=== PATIENT | female | born 1945 | race Caucasian/White ===

== ENCOUNTER → 2017-09-06 14:15 | Outpatient (CLI) | payer MEDICARE, OTHER, SELFPAY ==
[2017-09-06 14:59] LABS: Add Manual Diff / Slide Review NO; Basophils Percent Auto 0.8 % (0-2); Eosinophils Percent Auto 1.8 % (2-4); Hemoglobin 14.4 g/dL (12.0-16.0); Lymphocytes Percent Auto 33.8 % (25-40); Mean Corpuscular HGB Conc 34.4 % (30-36); Mean Corpuscular Hemoglobin 31.3 PG (26-34); Monocytes Percent Auto 13.2 % (3-14); Neutrophils Absolute Auto 3300 /uL (3000-5900); Neutrophils Percent Auto 50.4 % (50-75); Platelet Count 238 X10^3/uL (150-400); Red Blood Cell Count 4.62 X10^6/uL (4.0-5.2); Red Cell Distribution Width 12.8 % (11.6-14.8); White Blood Cell Count 6.6 X10^3/uL (4.5-11.0)
[2017-09-06 15:06] LABS: Alanine Aminotransferase 25 IU/L (9-52); Albumin 4.4 g/dL (3.5-5.0); Albumin Globulin Ratio 1.3 (1.0-2.8); Alkaline Phosphatase 89 U/L (38-126); Aspartate Aminotransferase 20 IU/L (14-36); BUN Creatinine Ratio 28.3 (6-22); Bilirubin Total 0.5 mg/dL (0.2-1.3); Calcium 9.8 mg/dL (8.4-10.2); Estimated Glomerular Filt Rate > 60.0 mL/min (>60); Globulin 3.4 g/dL (1.7-4.1); Glucose 93 mg/dL (80-110); HEMOLYSIS < 15 (0-50); Potassium 4.3 mmol/L (3.4-5.1); Sodium 139 mmol/L (137-145); Total Protein 7.8 g/dL (6.3-8.2)
[2017-09-06 16:18] LABS: Vitamin D 25 Hydroxy (D3) 25.8 ng/mL (30.0-100.0)
[2017-09-06 16:34] LABS: Thyroid Stimulating Hormone 0.31 uIU/mL (0.47-4.68)
[2017-09-10 14:25] LABS: Parathyroid Hormone Int 69 pg/mL (14-64)
== END ==
PROVIDERS: Family Provider Physician Assistant; PCP Physician Assistant; Visit Provider Physician Assistant
DX: I10 Essential (primary) hypertension (principal); E21.3 Hyperparathyroidism, unspecified; E03.9 Hypothyroidism, unspecified; E55.9 Vitamin D deficiency, unspecified
CPT/HCPCS: 36415; 80053; 82306; 83970; 84443; 85025

== ENCOUNTER → 2017-11-14 16:16 | Outpatient (CLI) | payer MEDICARE, OTHER, SELFPAY ==
[2017-11-14 17:20] LABS: Alanine Aminotransferase 36 IU/L (9-52); Albumin 4.6 g/dL (3.5-5.0); Albumin Globulin Ratio 1.5 (1.0-2.8); Alkaline Phosphatase 94 U/L (38-126); Aspartate Aminotransferase 25 IU/L (14-36); Bilirubin Total 0.3 mg/dL (0.2-1.3); Blood Urea Nitrogen 14 mg/dL (7-17); Calcium 10.4 mg/dL (8.4-10.2); Carbon Dioxide 24 mmol/L (22-32); Chloride 104 mmol/L (98-107); Estimated Glomerular Filt Rate > 60.0 mL/min (>60); Glucose 99 mg/dL (80-110); HEMOLYSIS < 15 (0-50); Potassium 4.9 mmol/L (3.4-5.1); Sodium 141 mmol/L (137-145); Total Protein 7.6 g/dL (6.3-8.2)
[2017-11-14 17:49] LABS: Thyroid Stimulating Hormone 0.93 uIU/mL (0.47-4.68)
== END ==
PROVIDERS: Family Provider Physician Assistant; PCP Physician Assistant; Visit Provider Physician Assistant
DX: E03.9 Hypothyroidism, unspecified (principal); I10 Essential (primary) hypertension
CPT/HCPCS: 36415; 80053; 84443

== ENCOUNTER → 2018-02-25 14:07 | Outpatient (CLI) | payer MEDICARE, OTHER, SELFPAY ==
--- NOTE | 2018-02-25 | DI.CT.S_ITS ---
PROCEDURE: CT HEAD/BRAIN WO CON INDICATIONS: HEADACHES TECHNIQUE: Noncontrast 4.5 mm thick angled axial sections acquired from the foramen magnum to the vertex, with coronal and sagittal reformats. For radiation dose reduction, the following was used: automated exposure control, adjustment of mA and/or kV according to patient size. COMPARISON: [facility], CT, HEAD WITHOUT CONTRAST, 04/13/2013, 12:18. FINDINGS: Image quality: Excellent. CSF spaces: Basal cisterns are patent. No extra-axial fluid collections. The ventricles are symmetric in size and shape. Brain: No intracranial bleeds or masses. There is cerebral volume loss for age, with resultant ventricular and sulcal prominence. There are periventricular and deep white matter chronic small vessel ischemic changes. There is intracranial internal carotid artery atherosclerosis. Skull and face: Calvarium and visualized facial bones appear intact, without suspicious lesions. Sinuses: Visualized sinuses and mastoids are clear. IMPRESSION: 1. No acute intracranial process. 2. Moderate atrophy and chronic microvascular ischemic changes. Dictated by: Idalia Reynolds M.D. on 02/25/2018 at 14:41 Approved by: Idalia Reynolds M.D. on 02/25/2018 at 14:44
== END ==
PROVIDERS: Family Provider Physician Assistant; PCP Physician Assistant; Visit Provider Physician Assistant
DX: R51 Headache (principal); G31.9 Degenerative disease of nervous system, unspecified; I65.29 Occlusion and stenosis of unspecified carotid artery
CPT/HCPCS: 70450

== ENCOUNTER → 2018-04-04 14:49 | Outpatient (CLI) | payer MEDICARE, OTHER, SELFPAY ==
--- NOTE | 2018-04-04 | DI.MG.S_ITS ---
BILATERAL DIGITAL SCREENING MAMMOGRAM 3D/2D WITH CAD POST LUMPECTOMY: 04/04/2018 CLINICAL: Routine screening. Personal history of left breast cancer. Comparison is made to exams dated: 12/10/2016 mammogram, 05/23/2015 mammogram, and 12/29/2013 mammogram - [facility]. There are scattered fibroglandular elements in both breasts. Current study was also evaluated with a Computer Aided Detection (CAD) system. There are benign post operative findings in the left breast. No significant masses, calcifications, or other findings are seen in either breast. There has been no significant interval change. IMPRESSION: There is no mammographic evidence of malignancy. A 1 year screening mammogram is recommended. This exam was interpreted at Station ID: [id number]. NOTE: For mammograms, a report in lay terms will be sent to the patient. Approximately 15% of breast malignancies will not be visualized mammographically. In the management of a palpable breast mass, a negative mammogram must not discourage biopsy of a clinically suspicious lesion. Electronically Signed By: Thelma weeks/iain:04/04/2018 16:23:20 letter sent: Normal Exam ACR BI-RADS Category 2: Benign Finding(s) 3342F
== END ==
PROVIDERS: PCP Physician Assistant; Visit Provider Physician Assistant
DX: Z12.31 Encounter for screening mammogram for malignant neoplasm of breast (principal); Z85.3 Personal history of malignant neoplasm of breast
CPT/HCPCS: 77063; 77067

== ENCOUNTER → 2019-03-11 15:07 | Outpatient (CLI) | payer MEDICARE, OTHER, SELFPAY ==
[2019-03-11 16:31] LABS: Add Manual Diff / Slide Review NO; Basophils Absolute Auto 100 /uL (0-100); Basophils Percent Auto 0.9 % (0-2); Eosinophils Absolute Auto 100 /uL (0-450); Eosinophils Percent Auto 1.9 % (2-4); Hematocrit 42.2 % (36-46); Hemoglobin 14.7 g/dL (12.0-16.0); Lymphocytes Absolute Auto 2300 /uL (1100-4500); Lymphocytes Percent Auto 35.4 % (25-40); Mean Corpuscular HGB Conc 34.7 % (30-36); Mean Corpuscular Hemoglobin 31.9 PG (26-34); Mean Corpuscular Volume 91.7 fL (80-100); Monocytes Absolute Auto 600 /uL (0-900); Monocytes Percent Auto 9.8 % (3-14); Neutrophils Absolute Auto 3400 /uL (1500-7000); Platelet Count 266 X10^3/uL (150-400); Red Cell Distribution Width 12.6 % (11.6-14.8); White Blood Cell Count 6.5 X10^3/uL (4.5-11.0)
[2019-03-11 16:39] LABS: Hemoglobin A1C% w Est Avg Glu 5.3 % (4.0-6.0)
[2019-03-11 16:40] LABS: Alanine Aminotransferase 23 IU/L (<35); Albumin 4.5 g/dL (3.5-5.0); Albumin Globulin Ratio 1.6 (1.0-2.8); Alkaline Phosphatase 85 U/L (38-126); Aspartate Aminotransferase 25 IU/L (14-36); BUN Creatinine Ratio 21.7 (6-22); Bilirubin Total 0.5 mg/dL (0.2-1.3); Blood Urea Nitrogen 13 mg/dL (7-17); Calcium 10.3 mg/dL (8.4-10.2); Carbon Dioxide 24 mmol/L (22-32); Chloride 103 mmol/L (98-107); Cholesterol 283 mg/dL (140-199); Estimated Glomerular Filt Rate > 60.0 mL/min (>60); Globulin 2.9 g/dL (1.7-4.1); Glucose 108 mg/dL (80-110); HDL Cholesterol 71 mg/dL (40-60); HEMOLYSIS < 15 (0-50); LDL Cholesterol Calculated 174 mg/dL (<100); Potassium 4.3 mmol/L (3.4-5.1); Sodium 137 mmol/L (137-145); Total Protein 7.4 g/dL (6.3-8.2); Triglycerides 189 mg/dL (35-150)
[2019-03-11 16:55] LABS: Vitamin D 25 Hydroxy (D3) 30.4 ng/mL (30.0-100.0)
[2019-03-11 17:01] LABS: Erythrocyte Sedimentation Rate 17 MM/HR (0-20)
[2019-03-11 17:10] LABS: Cancer Antigen 125 13 U/mL (0-35)
[2019-03-11 17:29] LABS: Vitamin B12 629 pg/mL (239-931)
[2019-03-14 14:11] LABS: Parathyroid Hormone Int 49 pg/mL (14-64)
[2019-03-15 14:32] LABS: ANA Screen, IFA POSITIVE (NEGATIVE)
== END ==
PROVIDERS: PCP Physician Assistant; Visit Provider Physician Assistant
DX: I10 Essential (primary) hypertension (principal); R73.09 Other abnormal glucose; Z85.3 Personal history of malignant neoplasm of breast; E55.9 Vitamin D deficiency, unspecified
CPT/HCPCS: 36415; 80053; 80061; 82306; 82607; 83036; 83970; 84443; 85025; 85651; 86038; 86140; 86304

== ENCOUNTER → 2019-03-19 15:45 | Outpatient (CLI) | payer MEDICARE, OTHER, SELFPAY ==
[2019-03-24 16:40] LABS: Total Volume 2450 mL; Urine, Metanephrine 88 mcg/24 h (90-315); Urine, Normetanephrine 404 mcg/24 h (122-676)
[2019-03-29 18:24] LABS: Creatinine, 24 Urine 1.12 g/24 h (0.50-2.15); Total Catecholamines 60 mcg/24 h (26-121); Total Volume: 2450 mL
== END ==
PROVIDERS: PCP Physician Assistant; Visit Provider Physician Assistant
DX: I10 Essential (primary) hypertension (principal); E21.3 Hyperparathyroidism, unspecified; E03.9 Hypothyroidism, unspecified; E55.9 Vitamin D deficiency, unspecified
CPT/HCPCS: 82384; 83835

== ENCOUNTER 2019-04-15 23:42 | Emergency (ER) | payer MEDICARE, OTHER, SELFPAY ==
--- NOTE | 2019-04-15 23:50 | DI.RAD.S_ITS ---
PROCEDURE: XR FINGER LT MIN 2V INDICATIONS: laceration TECHNIQUE: AP hand, 2 views of the fourth finger(s) acquired. COMPARISON: None. FINDINGS: Bones: Displaced fracture of the tuft of the fourth distal phalange. Soft tissues: No suspicious soft tissue calcifications. No radiodense foreign bodies. IMPRESSION: Fourth distal phalange fracture. Dictated by: Marilia De León MD, PhD on 04/16/2019 at 9:00 Approved by: Marilia De León MD, PhD on 04/16/2019 at 9:01
[2019-04-15 23:52] VITALS: BP 142/60; PULSE 68; RESP 15; TEMP 36.7; O2SAT 95; BMI 43.9
--- NOTE | 2019-04-15 23:55 | PC.NURSE ---
pt has partial amputation of tip of left ring finger, bleeding controlled at this time
[2019-04-16] MEDS: TET,DIPH,PERTUSS(ACELL),VAC/PF 0.5 ML SYRINGE IM
[2019-04-16] MEDS: LIDOCAINE 1% (PF) 4 ML INJ
--- NOTE | 2019-04-16 00:01 | PC.NURSE ---
lidocaine scanned against patient wristband and given to dr ashraf for administration
--- NOTE | 2019-04-16 00:03 | ED.WOUNDLAC ---
HPI - Wound/Laceration General Chief Complaint: Wound/Laceration Stated Complaint: left ring finger laceration Time Seen by Provider: 04/15/19 23:50 Source: patient Mode of arrival: Ambulatory Limitations: no limitations History of Present Illness HPI narrative: Patient is a 73-year-old female here for evaluation of left ring finger injury. Patient isn't exactly sure how the injury happened. She was at home. She did have some alcoholic beverages this evening. She states that she went to pull in her chair when she is unsure if she crushed her finger caught on something. She does not know when her last tetanus shot was. Covered with a bandage came into the emergency department for evaluation. Related Data Home Medications Medication Instructions Recorded Confirmed ranitidine HCl [Zantac] 150 mg PO BID #0 06/19/16 11/14/17 aspirin 81 mg PO QDAY #0 12/13/16 11/14/17 cholecalciferol (vitamin D3) 1 tab PO QDAY #0 12/13/16 11/14/17 [Vitamin D3] amitriptyline 25 mg tablet 25 mg PO BEDTIME 11/14/17 11/14/17 diltiazem HCl 180 mg 360 mg PO DAILY cap 11/14/17 11/14/17 capsule,extended release 24 hr escitalopram oxalate 10 mg tablet 10 mg PO DAILY 11/14/17 11/14/17 fluticasone furoate 27.5 2 spray NASAL DAILY PRN 11/14/17 11/14/17 mcg/actuation nasal spray,suspension levothyroxine 75 mcg capsule 75 mcg PO DAILY 11/14/17 11/14/17 metoprolol succinate 50 mg 50 mg PO DAILY 11/14/17 11/14/17 tablet,extended release 24 hr Respironics Dreamstation CPAP #1 ea 08/28/18 08/28/18 Previous Rx's Medication Instructions Recorded oxycodone-acetaminophen [Percocet] 1 - 2 tab PO Q4HP PRN #90 tab 01/04/17 cephalexin [Keflex] 500 mg PO QID 7 Days #28 cap 04/16/19 Allergies Allergy/AdvReac Type Severity Reaction Status Date / Time adhesive tape [ADHESIVE TAPE] Allergy Severe FLARE OF Unverified 11/14/17 14:25 ECZEMA nickel [NICKEL] Allergy Severe FLARE OF Unverified 11/14/17 14:25 ECZEMA iodine [IODINE] Allergy Mild SKIN RASH Unverified 11/14/17 14:25 moxifloxacin [MOXIFLOXACIN] Allergy Mild ITCHING Unverified 11/14/17 14:25 amoxicillin [From AUGMENTIN] AdvReac Severe VOMITING Unverified 11/14/17 14:25 clavulanic acid AdvReac Severe VIOLENTLY Unverified 11/14/17 14:25 [CLAVULANIC ACID] ILL oxycodone [OXYCODONE] AdvReac Severe DELAYED Unverified 11/14/17 14:25 DIFFICULTY WITH GAIT Sulfa (Sulfonamide AdvReac Severe NAUSEA, Unverified 11/14/17 14:25 Antibiotics) VOMITING [SULFA (SULFONAMIDE ANTIBIOTICS)] levofloxacin [From LEVAQUIN] AdvReac Intermediate VOMITING Unverified 11/14/17 14:25 lisinopril [LISINOPRIL] AdvReac Mild cough Unverified 11/14/17 14:25 tramadol [TRAMADOL] AdvReac Mild DIZZINESS Unverified 11/14/17 14:25 ADHESIVE TAPE Allergy Mild SKIN RASH Uncoded 11/14/17 14:25 Review of Systems Constitutional Constitutional: Denies fever(s) ENT Ears, Nose, Mouth, and Throat: Denies disequilibrium Musculoskeletal Musculoskeletal: Denies tingling Comments: Left ring finger pain. Integumentary/Breasts Comments: Cut to the end of the left ring finger Neurologic Neurologic: Denies tingling, Denies paresthesias and Denies disequilibrium Hematologic/Lymphatic Hematologic/Lymphatic: Denies easy bleeding and Denies easy bruising Patient History Medical History Excessive daytime sleepiness (Chronic) Nocturnal hypoxemia (Chronic) Primary insomnia (Chronic) Surgical History History of hip replacement History of hip replacement History of knee replacement History of knee replacement History of tonsillectomy Status post breast lumpectomy Social History marital status: Smoking Status: Never smoker alcohol intake: current substance use type: does not use Smoking Status: Never smoker alcohol intake frequency: 3 or more drinks per day Alcohol type: wine Substance Use Type: does not use Exam Initial Vital Signs Initial Vital Signs: Vital Signs Temperature 98.1 F 04/15/19 23:52 Pulse Rate 68 04/15/19 23:52 Respiratory Rate 15 04/15/19 23:52 Blood Pressure 142/60 H 04/15/19 23:52 Pulse Oximetry 95 04/15/19 23:52 Const General: cooperative and healthy appearing Cardio Pulses: radial pulses present on the left Skin Other: Patient is a complex laceration to the left distal ring finger with some oozing Neuro General: alert and awake Sensory Exam: no sensory deficits noted Extrem Other: Joint left hand unremarkable Procedures Laceration Repair Laceration 1: Site: hand Side (If applicable): left Size (cm): 3 Description: flap and irregular Depth: simple, single layer Pre-repair: wound explored, irrigated extensively and deep structures intact Skin layer closed with: other (Chromic) Size (cm): 4-0 Number of sutures: 10 Technique: simple, interrupted Nerve Block Nerve Block 1: Time out performed: Yes Local Anesthetic: lidocaine 1% Amount of anesthesia used (mL): 4 Side: left Nerve Blocks: digital Procedure Successful: Yes Patient Tolerated Procedure: Well Complications: none Orthopedic Splinting/Casting Injury #1: Side: left Upper Extremity Injury Location: finger Upper Extremity Immobilizer: aluminum form splint Post splinting neuro exam: intact Post splinting vascular exam: intact Placed by: Provider [facility] [place] Procedure Name of Procedure: Left ring fingernail removal Side (if applicable): left Location: Left ring finger Time out performed: Yes Technique/Description of procedure performed: After digital block an elevator was placed under the fingernail to remove it from the nail bed. Patient tolerated procedure: Well and No complications Complications: none Course Orders Ordered: ED Orders 04/15/19 23:50 XR finger LT min 2V Stat Discontinued Medications Hydrocodone Bitart/Acetaminophen ([place]ling 5/325) 1 tab PO NOW ONE Stop: 04/16/19 01:31 Last Admin: 04/16/19 01:41 Dose: 1 tab Documented by: GENEVIEVE Hydrocodone Bitart/Acetaminophen (Vicodin 5/325 Prepack) 1 bottle [facility] SEEINSTR ONE Stop: 04/16/19 01:31 Last Admin: 04/16/19 01:41 Dose: 1 bottle Documented by: GENEVIEVE Bacitracin (Bacitracin) 2 applic TOP NOW ONE Stop: 04/16/19 01:18 Last Admin: 04/16/19 01:43 Dose: 2 applic Documented by: GENEVIEVE Cephalexin HCl (Keflex) 500 mg PO NOW ONE Stop: 04/16/19 01:31 Last Admin: 04/16/19 01:41 Dose: 500 mg Documented by: GENEVIEVE Diphtheria/Tetanus/Acell Pertussis (Adacel) 0.5 ml IM .ONCE ONE Stop: 04/15/19 23:51 Last Admin: 04/16/19 00:00 Dose: 0.5 ml Documented by: DORA Lidocaine HCl (Xylocaine 1% (Pf)) 4 ml INJ NOW ONE Stop: 04/15/19 23:51 Last Admin: 04/16/19 00:00 Dose: 4 ml Documented by: DORA Vital Signs Vital signs: Vital Signs - 8 hr 04/15/19 23:52 04/16/19 01:53 Temperature 98.1 F Pulse Rate 68 70 Respiratory Rate 15 15 Blood Pressure 142/60 H 148/49 H Pulse Oximetry 95 98 [facility] - Wound/Laceration Imaging Data Extremity x-ray #1: Attestation: I personally reviewed and interpreted this imaging study as follows: My Impression: Left hand x-ray shows a distal phalanx tuft fracture of the left ring finger. [facility] Narrative Medical decision making narrative: Patient's tetanus was updated. She does have a complex laceration to the distal portion of the left ring finger. There is a underlying associated tuft fracture. The fingernail was removed to expose the nail bed. The laceration does involve the tissue under the nail. This was closed as described above. She was given antibiotics. She was placed in a splint. She was given care instructions and return precautions. She was informed that this type of injury there could be potential that the very distal portion of her finger has a disruption of the blood supply however suturing it back together is the best option for her. Also discussed with her that removing the fingernail could cause the finger now to not grow back ?normal? again. I did discuss this is important to make sure that the laceration does not involve the area under the nail (which it did). She was placed in aluminum foam splint. Was instructed to contact her primary provider for follow-up. She was given care instructions and return precautions. Patient expressed understanding and agreement plan. Discharge Plan Departure Patient Disposition: Home Clinical Impression: Laceration of finger of left hand Qualifiers: Encounter type: initial encounter Finger: ring finger Damage to nail status: with damage Foreign body presence: unspecified Qualified Code(s): S61.315A - Laceration without foreign body of left ring finger with damage to nail, initial encounter Finger fracture, left Qualifiers: Encounter type: initial encounter Finger: ring finger Fracture type: open Phalanx: proximal Fracture alignment: displaced Qualified Code(s): S62.615B - Displaced fracture of proximal phalanx of left ring finger, initial encounter for open fracture Discharge Date/Time: 04/16/19 01:55 Instructions: DI for Laceration Repair Activity Restrictions/Additional Instructions: Take the antibiotics as directed. Keep the splint on until Saturday. Tomorrow contact your primary provider for follow-up early next week. Return to the emergency department for any new or worsening symptoms Prescriptions: New cephalexin [Keflex] 500 mg capsule 500 mg PO QID 7 Days Qty: 28 RF: 0 No Action ranitidine HCl [Zantac] 150 MG tablet 150 mg PO BID Qty: 0 RF: 0 aspirin 81 MG tablet,delayed release (DR/EC) 81 mg PO QDAY Qty: 0 RF: 0 cholecalciferol (vitamin D3) [Vitamin D3] 2,000 UNIT tablet 1 tab PO QDAY Qty: 0 RF: 0 oxycodone-acetaminophen [Percocet] 5 MG/325 MG tablet 1 - 2 tab PO Q4HP PRNQty: 90 RF: 0 fluticasone furoate 27.5 mcg/actuation spray,suspension 2 spray NASAL DAILY PRNRF: 0 diltiazem HCl 180 mg capsule,extended release 24hr 360 mg PO DAILY RF: 0 amitriptyline 25 mg tablet 25 mg PO BEDTIME RF: 0 metoprolol succinate [Toprol XL] 50 mg tablet extended release 24 hr 50 mg PO DAILY RF: 0 escitalopram oxalate [Lexapro] 10 mg tablet 10 mg PO DAILY RF: 0 levothyroxine 75 mcg capsule 75 mcg PO DAILY RF: 0 (DME) Respironics Dreamstation CPAP Qty: 1 RF: 0 Referrals: Vanesa Arechiga PA-C [Primary Care Provider] -
[2019-04-16] MEDS: HYDROCODONE/ACET 5/325 TABLET 1 TAB PO (01:41)
[2019-04-16] MEDS: HYDROCODONE/ACET 5/325 PREPACK 1 BOTTLE MISC (01:41)
[2019-04-16] MEDS: cephALEXin 250 MG CAPSULE 500 MG PO (01:41)
[2019-04-16] MEDS: BACITRACIN OINT 0.9 GM PCKT 2 APPLIC TOP (01:43)
[2019-04-16 01:53] VITALS: BP 148/49; PULSE 70; RESP 15; O2SAT 98
== END 2019-04-16 01:55 | disposition home or self-care (01) ==
PROVIDERS: Emergency Provider Emergency Medicine; PCP Physician Assistant
DX: S62.615B Displaced fracture of proximal phalanx of left ring finger, initial encounter for open fracture (principal); Z23 Encounter for immunization
CPT/HCPCS: 11730; 12002; 64450; 73140; 96372; 99283; 99284; 90715

== ENCOUNTER → 2019-09-16 15:54 | Outpatient (CLI) | payer MEDICARE, OTHER, SELFPAY ==
[2019-09-16 17:24] LABS: Hematocrit 42.3 % (36-46); Hemoglobin 14.8 g/dL (12.0-16.0); Mean Corpuscular Hemoglobin 32.7 PG (26-34); Mean Corpuscular Volume 93.5 fL (80-100); Platelet Count 237 X10^3/uL (150-400); Red Blood Cell Count 4.53 X10^6/uL (4.0-5.2); Red Cell Distribution Width 13.3 % (11.6-14.8); White Blood Cell Count 7.2 X10^3/uL (4.5-11.0)
[2019-09-16 17:44] LABS: Alanine Aminotransferase 22 IU/L (<35); Albumin 4.5 g/dL (3.5-5.0); Albumin Globulin Ratio 1.4 (1.0-2.8); Alkaline Phosphatase 82 U/L (38-126); Aspartate Aminotransferase 27 IU/L (14-36); Bilirubin Total 0.3 mg/dL (0.2-1.3); Blood Urea Nitrogen 12 mg/dL (7-17); Carbon Dioxide 24 mmol/L (22-32); Chloride 103 mmol/L (98-107); Estimated Glomerular Filt Rate > 60.0 mL/min (>60); Globulin 3.3 g/dL (1.7-4.1); Glucose 99 mg/dL (80-110); HEMOLYSIS < 15 (0-50); Potassium 3.9 mmol/L (3.4-5.1); Sodium 135 mmol/L (137-145); Total Protein 7.8 g/dL (6.3-8.2)
[2019-09-16 19:04] LABS: TSH w/ Reflex to FT4 0.84 uIU/mL (0.47-4.68)
[2019-09-16 20:16] LABS: Erythrocyte Sedimentation Rate 16 MM/HR (0-20)
[2019-09-16 20:24] LABS: Neutrophils Absolute Manual 4536 /uL (3000-5900); RBC Morphology Normal Morphology; Total Cells Counted 100
[2019-09-17 16:14] LABS: IGA 130 mg/dL (64-422); IGG 904 mg/dL (586-1602); IGM 138 mg/dL (26-217)
[2019-09-17 18:36] LABS: SS A Ro Sjogrens Antibody < 0.2 AI (0.0-0.9); SS B La Sjogrens Antibody < 0.2 AI (0.0-0.9)
[2019-09-18 11:56] LABS: Hemoglobin A1C% w Est Avg Glu 5.3 % (4.0-6.0)
== END ==
PROVIDERS: PCP Physician Assistant; Referring Provider Physician Assistant; Visit Provider Physician Assistant
DX: R68.2 Dry mouth, unspecified (principal); B37.0 Candidal stomatitis; M35.00 Sjogren syndrome, unspecified; E21.3 Hyperparathyroidism, unspecified; E83.52 Hypercalcemia; E03.9 Hypothyroidism, unspecified; R73.09 Other abnormal glucose
CPT/HCPCS: 36415; 80053; 82784; 83036; 84443; 85025; 85651; 86235

== ENCOUNTER → 2019-11-06 17:35 | Outpatient (CLI) | payer MEDICARE, OTHER, SELFPAY | PROVIDERS: PCP Physician Assistant; Referring Provider Physician Assistant; Visit Provider Physician Assistant | DX: M54.6 Pain in thoracic spine (principal); M54.2 Cervicalgia; M54.5 Low back pain; Z53.20 Procedure and treatment not carried out because of patient's decision for unspecified reasons ==

== ENCOUNTER → 2019-11-26 14:36 | Outpatient (CLI) | payer MEDICARE, OTHER, SELFPAY ==
--- NOTE | 2019-11-26 14:48 | DI.RAD.S_ITS ---
PROCEDURE: XR CERVICAL SPINE 2V OR 3V INDICATIONS: neck pain TECHNIQUE: 3 view(s) of the cervical spine were acquired. COMPARISON: , CERVICAL SPINE 2 OR 3 VIEWS, 03/03/2012, 13:39. [facility], , CERVICAL SPINE 2 OR 3 VIEWS, 01/20/2016, 12:45. FINDINGS: Bones: No fractures or dislocations to the C7 level. The lateral masses of C1 appear intact on the odontoid view. There is degenerative disc disease, moderate to severe at C 5-C6 and C6-C7, moderate at C3-C4 and C4-C5. There is bilateral facet arthropathy, most pronounced at C3-C4 on the left. No suspicious bony lesions. Soft tissues: No prevertebral soft tissue swelling. IMPRESSION: Multilevel degenerative disc and facet disease in cervical spine as described. Dictated by: Carrie Zacarias M.D. on 11/26/2019 at 17:33 Approved by: Carrie Zacarias M.D. on 11/26/2019 at 17:36
--- NOTE | 2019-11-26 14:48 | DI.RAD.S_ITS ---
PROCEDURE: XR LUMBAR SPINE 2-3V INDICATIONS: BACK PAIN TECHNIQUE: 3 views of the lumbar spine were acquired. COMPARISON: [facility], [place], BONE SCAN THREE PHASE, 06/11/2013, 8:41. [facility], , L-SPINE 2-3 VIEWS, 11/23/2011, 14:13. FINDINGS: Bones: 5 [id number] vertebrae are present. Mild dextroscoliosis. There is normal bony alignment. No vertebral body compression fractures. No suspicious bony lesions. There is degenerative disc disease, [id number] at L4-L5, moderate at L2-L3 and L3-L4, and mild at other levels. Severe facet arthropathy at L4-L5 and L5-S1 bilaterally. Soft tissues: Overlying bowel gas pattern is normal. No suspicious soft tissue calcifications. IMPRESSION: Multilevel degenerative disc and facet disease as described. Dictated by: Carrie Zacarias M.D. on 11/26/2019 at 17:38 Approved by: Carrie Zacarias M.D. on 11/26/2019 at 17:40
--- NOTE | 2019-11-26 14:48 | DI.RAD.S_ITS ---
PROCEDURE: XR THORACIC SPINE 3V INDICATIONS: BACK PAIN TECHNIQUE: 3 views of the thoracic spine were acquired. COMPARISON: [facility], THORACIC SPINE 3 VIEWS, 11/23/2011, 14:13. FINDINGS: Bones: No fractures or dislocations. No suspicious bony lesions. There is [id number] degenerative disc disease throughout the thoracic spine. Moderate degenerative disc disease at T12-L1. 12 pairs of ribs are noted, and appear intact where visualized. Bilateral shoulder arthroplasties. Soft tissues: No paravertebral stripe thickening. IMPRESSION: Multilevel degenerative disc disease as described. Dictated by: Carrie Zacarias M.D. on 11/26/2019 at 17:37 Approved by: Carrie Zacarias M.D. on 11/26/2019 at 17:38
== END ==
PROVIDERS: PCP Physician Assistant; Referring Provider Physician Assistant; Visit Provider Physician Assistant
DX: M54.5 Low back pain (principal); M50.31 Other cervical disc degeneration, high cervical region; M47.812 Spondylosis without myelopathy or radiculopathy, cervical region; M51.34 Other intervertebral disc degeneration, thoracic region; M51.35 Other intervertebral disc degeneration, thoracolumbar region; M51.36 Other intervertebral disc degeneration, lumbar region; M47.816 Spondylosis without myelopathy or radiculopathy, lumbar region; M47.817 Spondylosis without myelopathy or radiculopathy, lumbosacral region; Z96.612 Presence of left artificial shoulder joint; Z96.611 Presence of right artificial shoulder joint
CPT/HCPCS: 72040; 72072; 72100

== ENCOUNTER → 2020-01-07 13:24 | Outpatient (CLI) | payer MEDICARE, OTHER, SELFPAY ==
[2020-01-07 14:52] LABS: Clostridium Difficile Tox PCR Negative for C. diff
== END ==
PROVIDERS: PCP Physician Assistant; Referring Provider Physician Assistant; Visit Provider Physician Assistant
DX: R19.7 Diarrhea, unspecified (principal)
CPT/HCPCS: 87045; 87493; 87899

== ENCOUNTER 2020-02-26 11:09 | Emergency (ER) | payer MEDICARE, OTHER, SELFPAY ==
[2020-02-26 11:20] VITALS: BP 203/96; BP 208/95; PULSE 60; RESP 17; TEMP 36.7; O2SAT 95; BMI 43.5
--- NOTE | 2020-02-26 11:22 | DI.RAD.S_ITS ---
PROCEDURE: XR RIBS RT MIN 3V W CXR 1V INDICATIONS: fall pain TECHNIQUE: 2 views of the right ribs were acquired, along with a single view chest. COMPARISON: None. FINDINGS: Surgical changes and devices: Bilateral shoulder arthroplasty hardware is seen.. Bones and chest wall: No fractures or dislocations. No suspicious bony lesions. Overlying soft tissues appear unremarkable. Lungs and pleura: No pleural effusions or pneumothorax. Lungs appear clear. Mediastinum: Mediastinal contours appear normal. Heart size is normal. IMPRESSION: No gross displaced right rib fracture. No acute cardiopulmonary pathology.. Dictated by: Noel Rodriguez M.D. on 02/26/2020 at 10:43 Approved by: Noel Rodriguez M.D. on 02/26/2020 at 10:46
[2020-02-26 11:24] VITALS: PULSE 54; O2SAT 97
--- NOTE | 2020-02-26 11:29 | ED.FALL ---
HPI - Fall General Chief Complaint: Fall Stated Complaint: 'THINKS I BROKE SOME RIBS OR SOMETHING' Time Seen by Provider: 02/26/20 11:12 Source: patient Mode of arrival: Ambulatory Limitations: no limitations History of Present Illness HPI Narrative: The patient is a 74-year-old overweight female who presents with right-sided rib pain. She states she fell twice yesterday the 1st time she was wearing her slippers outside and she slipped in the rain falling she injured her right wrist but states it is just sprained. She fell again when she came back inside and tripped on the carpet landing on her right side. She says it hurts every time she moves or breathes. She took 2 hydrocodone last night and ate barely helped. She did also take some ibuprofen. complaint: fall Onset (ago): day(s) Fall from: standing Fall witnessed: no Place fall occurred: home Loss of consciousness: none Related Data Home Medications Medication Instructions Recorded Confirmed ranitidine HCl [Zantac] 150 mg PO BID #0 06/19/16 11/14/17 aspirin 81 mg PO QDAY #0 12/13/16 11/14/17 cholecalciferol (vitamin D3) 1 tab PO QDAY #0 12/13/16 11/14/17 [Vitamin D3] amitriptyline 25 mg tablet 25 mg PO BEDTIME 11/14/17 11/14/17 diltiazem HCl 180 mg 360 mg PO DAILY cap 11/14/17 11/14/17 capsule,extended release 24 hr escitalopram oxalate 10 mg tablet 10 mg PO DAILY 11/14/17 11/14/17 fluticasone furoate 27.5 2 spray NASAL DAILY PRN 11/14/17 11/14/17 mcg/actuation nasal spray,suspension levothyroxine 75 mcg capsule 75 mcg PO DAILY 11/14/17 11/14/17 metoprolol succinate 50 mg 50 mg PO DAILY 11/14/17 11/14/17 tablet,extended release 24 hr Respironics Dreamstation CPAP #1 ea 08/28/18 08/28/18 Previous Rx's Medication Instructions Recorded oxycodone-acetaminophen [Percocet] 1 - 2 tab PO Q4HP PRN #90 tab 01/04/17 hydrocodone-acetaminophen 1 tab PO Q6H PRN #10 tab 02/26/20 Allergies Allergy/AdvReac Type Severity Reaction Status Date / Time adhesive tape [ADHESIVE TAPE] Allergy Severe FLARE OF Verified 02/26/20 11:22 ECZEMA nickel [NICKEL] Allergy Severe FLARE OF Verified 02/26/20 11:22 ECZEMA iodine [IODINE] Allergy Mild SKIN RASH Verified 02/26/20 11:22 moxifloxacin [MOXIFLOXACIN] Allergy Mild ITCHING Verified 02/26/20 11:22 amoxicillin [From AUGMENTIN] AdvReac Severe VOMITING Verified 02/26/20 11:22 clavulanic acid AdvReac Severe VIOLENTLY Verified 02/26/20 11:22 [CLAVULANIC ACID] ILL oxycodone [OXYCODONE] AdvReac Severe DELAYED Verified 02/26/20 11:22 DIFFICULTY WITH GAIT Sulfa (Sulfonamide AdvReac Severe NAUSEA, Verified 02/26/20 11:22 Antibiotics) VOMITING [SULFA (SULFONAMIDE ANTIBIOTICS)] levofloxacin [From LEVAQUIN] AdvReac Intermediate VOMITING Verified 02/26/20 11:22 lisinopril [LISINOPRIL] AdvReac Mild cough Verified 02/26/20 11:22 tramadol [TRAMADOL] AdvReac Mild DIZZINESS Verified 02/26/20 11:22 ADHESIVE TAPE Allergy Mild SKIN RASH Uncoded 11/14/17 14:25 Review of Systems Review of Systems Narrative: GENERAL: Denies chills, fatigue, malaise, fever, sweats, travel HEENT: Denies sinus pain, ear pain, sore throat, difficulty swallowing, neck pain RESPIRATORY: See HPI CARDIOVASCULAR: Denies chest pain, palpitations, orthopnea, edema GASTROINTESTINAL: Denies nausea, vomiting, abdominal pain, diarrhea, constipation, melena. : Denies dysuria, frequency, incontinence, hematuria, urinary retention, flank pain. MUSCULOSKELETAL: Denies weakness, joint pain, or bony pain SKIN: No rash, no erythema, no pruritus NEUROLOGIC: Denies weakness, dizziness, headache, numbness, change in speech, confusion PSYCHIATRIC: No concerning psychosocial issues. 12 point review of systems is negative except for those stated above and HPI 8 point review of systems is negative except for those stated above and HPI Patient History Medical History Excessive daytime sleepiness (Chronic) Nocturnal hypoxemia (Chronic) Primary insomnia (Chronic) Surgical History History of hip replacement History of hip replacement History of knee replacement History of knee replacement History of tonsillectomy Status post breast lumpectomy Family History Brother Age: 73 Smoker Alcohol abuse Social History marital status: Smoking Status: Never smoker alcohol intake: current substance use type: does not use Smoking Status: Never smoker alcohol intake frequency: 3 or more drinks per day Alcohol type: wine Substance Use Type: does not use Exam Initial Vital Signs Initial Vital Signs: Vital Signs Temperature 98.1 F 02/26/20 11:20 Pulse Rate 60 02/26/20 11:20 Respiratory Rate 17 02/26/20 11:20 Blood Pressure 203/96 H 02/26/20 11:20 Pulse Oximetry 95 02/26/20 11:20 GENERAL: Patient appears in pain. HEENT: Head atraumatic,EOMI, pupils reactive, face symmetric, [moist] mucous membranes CARDIOVASCULAR: Regular rate and rhythm without murmurs, rubs or gallops. RESPIRATORY: Breath sounds equal bilaterally, no wheezes rales or rhonchi. Tachypneic. Tender right lateral ribs. No contusion no flail chest no erythema ABDOMEN: Soft, nontender. Normoactive bowel sounds all 4 quadrants. No guarding or rebound. EXTREMITIES: Normal range of motion, no clubbing or edema. Neurovascularly intact NEUROLOGICAL: Alert and oriented x4.Normal gait and speech. SKIN: Warm, dry, no laceration, no petechiae, no rashes or lesions. Course Orders Ordered: ED Orders 02/26/20 11:22 XR ribs RT min 3V w CXR1V Stat Discontinued Medications Ketorolac Tromethamine (Toradol) 30 mg IM NOW ONE Stop: 02/26/20 11:23 Last Admin: 02/26/20 11:34 Dose: 30 mg Documented by: LILLIANA Vital Signs Vital signs: Vital Signs - 8 hr 02/26/20 11:20 02/26/20 11:24 02/26/20 13:19 Temperature 98.1 F Pulse Rate 60 54 L 52 L Respiratory Rate 17 14 Blood Pressure 208/95 H 195/86 H Pulse Oximetry 95 97 95 MDM - Fall Imaging Data Chest x-ray: Radiologist's Impression: PROCEDURE: XR RIBS RT MIN 3V W CXR 1V INDICATIONS: fall pain TECHNIQUE: 2 views of the right ribs were acquired, along with a single view chest. COMPARISON: None. FINDINGS: Surgical changes and devices: Bilateral shoulder arthroplasty hardware is seen.. Bones and chest wall: No fractures or dislocations. No suspicious bony lesions. Overlying soft tissues appear unremarkable. Lungs and pleura: No pleural effusions or pneumothorax. Lungs appear clear. Mediastinum: Mediastinal contours appear normal. Heart size is normal. IMPRESSION: No gross displaced right rib fracture. No acute cardiopulmonary pathology.. Dictated by: Noel Rodriguez M.D. on 02/26/2020 at 10:4 MDM Narrative Medical decision making narrative: The patient is given incentive spirometer. She initially stated hydrocodone did not help with pain however she is allergic to oxycodone. She did receive some relief with Toradol. Discharge Plan Departure Patient Disposition: Home Clinical Impression: Contusion of rib on right side Qualifiers: Encounter type: initial encounter Qualified Code(s): S20.211A - Contusion of right front wall of thorax, initial encounter Discharge Date/Time: 02/26/20 13:21 Instructions: DI for Rib Contusion Activity Restrictions/Additional Instructions: *You have been diagnosed with right rib contusion *What to do: At this time recommend pain management. I also recommend she use the incentive spirometer to help expand her lungs and prevent pneumonia a. Please use this 5-10 times an hour while awake until pain has improved. *Continue to take medications as directed Ibuprofen 600 mg every 6-8 hours if needed for [id number] pain Delphi 1 tablet every 6 hours if needed for severe pain--> SENT TO [facility] IN [place] *Follow up with your primary care provider in 2-3 days *Return to ER if you should have increasing pain, shortness of breaths or any new, worsening or concerning symptoms CONTROLLED SUBSTANCE DISCHARGE (Narcotoic/benzodiazepine/Flexeril/Phenergan) 1. You have been prescribed narcotic medications, it does have acetaminophen/Tylenol/paracetamol in it so do not take extra Tylenol or Tylenol containing products TRAMADOL DOES NOT CONTAIN TYLENOL 2. Please understand that we cannot provide further refills of narcotics, benzodiazepines or controlled substances through the ED and her pain management will need to be through your provider. 3. While on these medications you cannot drive or operate heavy machinery. 4. You cannot sign legal documents or perform any duties such as this. 5. As long as you're taking opiate pain medications he should also be taking a stool softener such as Colace, Dulcolax, MiraLAX or prune juice, to help avoid constipation. Prescriptions: New hydrocodone-acetaminophen 5-325 mg tablet 1 tab PO Q6H PRN (Reason: pain) Qty: 10 RF: 0 No Action ranitidine HCl [Zantac] 150 MG tablet 150 mg PO BID Qty: 0 RF: 0 aspirin 81 MG tablet,delayed release (DR/EC) 81 mg PO QDAY Qty: 0 RF: 0 cholecalciferol (vitamin D3) [Vitamin D3] 2,000 UNIT tablet 1 tab PO QDAY Qty: 0 RF: 0 oxycodone-acetaminophen [Percocet] 5 MG/325 MG tablet 1 - 2 tab PO Q4HP PRNQty: 90 RF: 0 fluticasone furoate 27.5 mcg/actuation spray,suspension 2 spray NASAL DAILY PRNRF: 0 diltiazem HCl 180 mg capsule,extended release 24hr 360 mg PO DAILY RF: 0 amitriptyline 25 mg tablet 25 mg PO BEDTIME RF: 0 metoprolol succinate [Toprol XL] 50 mg tablet extended release 24 hr 50 mg PO DAILY RF: 0 escitalopram oxalate [Lexapro] 10 mg tablet 10 mg PO DAILY RF: 0 levothyroxine 75 mcg capsule 75 mcg PO DAILY RF: 0 (DME) Respironics Dreamstation CPAP Qty: 1 RF: 0 Referrals: Vanesa Arechiga PA-C [Primary Care Provider] -
--- NOTE | 2020-02-26 11:30 | PC.NURSE ---
Patient is having a hard time taking in full breath due to pain in the right side.
[2020-02-26] MEDS: KETOROLAC 60 MG/2 ML VIAL 30 MG IM (11:34)
[2020-02-26 13:19] VITALS: BP 195/86; PULSE 52; RESP 14; O2SAT 95
== END 2020-02-26 13:21 | disposition home or self-care (01) ==
PROVIDERS: Emergency Provider Emergency Medicine; PCP Physician Assistant
DX: S20.211A Contusion of right front wall of thorax, initial encounter (principal); W19.XXXA Unspecified fall, initial encounter
CPT/HCPCS: 71101; 96372; 99283; J1885

== ENCOUNTER → 2020-05-10 13:22 | Outpatient (CLI) | payer MEDICARE, OTHER, SELFPAY ==
[2020-05-10] MEDS: COVID-19 VACC #1, MRNA(MOD) 100 MCG/0.5 ML VIAL IM (13:40)
== END ==
PROVIDERS: PCP Physician Assistant; Visit Provider Internal Medicine
DX: Z23 Encounter for immunization (principal)
CPT/HCPCS: 0011A; 91301

== ENCOUNTER → 2020-06-07 13:43 | Outpatient (CLI) | payer MEDICARE, OTHER, SELFPAY ==
[2020-06-07] MEDS: COVID-19 VACC #2, MRNA(MOD) 100 MCG/0.5 ML VIAL IM (13:45)
== END ==
PROVIDERS: PCP Physician Assistant; Visit Provider Internal Medicine
DX: Z23 Encounter for immunization (principal)
CPT/HCPCS: 0012A; 91301

== ENCOUNTER → 2020-06-20 14:52 | Outpatient (CLI) | payer MEDICARE, OTHER, SELFPAY ==
--- NOTE | 2020-06-20 14:57 | DI.RAD.S_ITS ---
PROCEDURE: XR CHEST 2V INDICATIONS: SHORTNESS OF BREATH TECHNIQUE: 2 views of the chest were acquired. COMPARISON: [facility], , CHEST 1 VIEW, 10/19/2015, 13:51. FINDINGS: Surgical changes and devices: Patient is status post bilateral shoulder arthroplasty. Lungs and pleura: Mild pulmonary vascular congestion is seen. No focal infiltrate. No pleural effusions or pneumothorax. Mediastinum: Mediastinal contours are normal. Heart size is enlarged. Bones and chest wall: No suspicious bony abnormalities. Soft tissues appear unremarkable. IMPRESSION: Cardiomegaly and mild congestion. No focal infiltrate. No pleural effusion or pneumothorax. Dictated by: Noel Rodriguez M.D. on 06/20/2020 at 15:21 Approved by: Noel Rodriguez M.D. on 06/20/2020 at 15:21
== END ==
PROVIDERS: PCP Physician Assistant; Referring Provider Physician Assistant; Visit Provider Physician Assistant
DX: R06.02 Shortness of breath (principal); R00.2 Palpitations; I51.7 Cardiomegaly; R09.89 Other specified symptoms and signs involving the circulatory and respiratory systems
CPT/HCPCS: 71046; 93005

== ENCOUNTER → 2020-06-23 18:27 | Outpatient (ROUT) | payer MEDICARE, OTHER, SELFPAY ==
[2020-06-23 18:36] LABS: Add Manual Diff / Slide Review NO; Basophils Absolute Auto 0 /uL (0-100); Basophils Percent Auto 0.5 % (0-2); Eosinophils Absolute Auto 100 /uL (0-450); Eosinophils Percent Auto 1.5 % (2-4); Hematocrit 43.5 % (36-46); Hemoglobin 14.6 g/dL (12.0-16.0); Lymphocytes Absolute Auto 2200 /uL (1100-4500); Lymphocytes Percent Auto 23.8 % (25-40); Mean Corpuscular HGB Conc 33.7 % (30-36); Mean Corpuscular Hemoglobin 31.2 PG (26-34); Mean Corpuscular Volume 92.7 fL (80-100); Monocytes Absolute Auto 800 /uL (0-900); Monocytes Percent Auto 8.8 % (3-14); Neutrophils Absolute Auto 5900 /uL (1500-7000); Neutrophils Percent Auto 65.4 % (50-75); Platelet Count 285 X10^3/uL (150-400); Red Blood Cell Count 4.69 X10^6/uL (4.0-5.2); Red Cell Distribution Width 13.8 % (11.6-14.8); White Blood Cell Count 9.1 X10^3/uL (4.5-11.0)
[2020-06-23 18:43] LABS: HEMOLYSIS < 15 (0-50); Iron 69 ug/dL (37-170)
[2020-06-23 18:45] LABS: Alanine Aminotransferase 24 IU/L (<35); Albumin 4.4 g/dL (3.5-5.0); Albumin Globulin Ratio 1.4 (1.0-2.8); Alkaline Phosphatase 97 U/L (38-126); Aspartate Aminotransferase 27 IU/L (14-36); BUN Creatinine Ratio 23.3 (6-22); Bilirubin Total 0.2 mg/dL (0.2-1.3); Blood Urea Nitrogen 14 mg/dL (7-17); Calcium 10.3 mg/dL (8.4-10.2); Carbon Dioxide 24 mmol/L (22-32); Chloride 103 mmol/L (98-107); Estimated Glomerular Filt Rate > 60.0 mL/min (>60); Globulin 3.2 g/dL (1.7-4.1); Glucose 95 mg/dL (80-110); HEMOLYSIS < 15 (0-50); Magnesium 1.9 mg/dL (1.6-2.3); Potassium 4.3 mmol/L (3.4-5.1); Sodium 134 mmol/L (137-145); Total Protein 7.6 g/dL (6.3-8.2)
[2020-06-23 18:47] LABS: Hemoglobin A1C% w Est Avg Glu 5.4 % (4.0-6.0)
[2020-06-23 18:57] LABS: Percent Iron Saturation 18 % (15-50); Total Iron Binding Capacity 388 ug/dL (265-497); Transferrin 296 mg/dL (206-381)
[2020-06-23 19:01] LABS: Free T3, Triiodothyronine Free 3.67 pg/mL (2.77-5.27)
[2020-06-23 19:15] LABS: TSH w/ Reflex to FT4 0.95 uIU/mL (0.47-4.68)
[2020-06-23 19:21] LABS: Ferritin 45 ng/mL (11-264)
[2020-06-23 19:36] LABS: Vitamin B12 432 pg/mL (239-931)
[2020-06-25 15:03] LABS: Parathyroid Hormone Int 37 pg/mL (15-65)
== END ==
PROVIDERS: PCP Physician Assistant; Visit Provider Physician Assistant
DX: R00.2 Palpitations (principal); E78.2 Mixed hyperlipidemia; E03.9 Hypothyroidism, unspecified; E21.3 Hyperparathyroidism, unspecified; R06.02 Shortness of breath; R10.2 Pelvic and perineal pain
CPT/HCPCS: 80053; 82607; 82728; 83036; 83540; 83550; 83735; 83970; 84439; 84443; 84481; 85025; 86304

== ENCOUNTER → 2020-06-27 14:34 | Outpatient (CLI) | payer MEDICARE, OTHER, SELFPAY ==
--- NOTE | 2020-06-27 | DI.CT.S_ITS ---
PROCEDURE: CT CHEST W CON INDICATIONS: Shortness of breath TECHNIQUE: After the administration of intravenous contrast, 5 mm thick sections acquired from the pulmonary apices to the posterior costophrenic angles. 1 mm axial lung, 5 mm thick coronal and sagittal reformats and 7 mm axial MIP were acquired. For radiation dose reduction, the following was used: automated exposure control, adjustment of mA and/or kV according to patient size. COMPARISON: None. FINDINGS: Image quality: Excellent. Scattered subsegmental atelectasis and/or scarring. No focal consolidation. Bilateral upper lobe centrilobular emphysema. No pleural effusions or pneumothorax. Central and peripheral airways are patent and normal in caliber. Mediastinum: Heart size is normal. Coronary artery calcifications are present. No pericardial effusion. No mediastinal or hilar adenopathy by size criteria. Thoracic aorta and central pulmonary arteries are normal in size. Esophagus is normal in caliber. No hiatal hernia. Bones and chest wall: No fracture identified. Lucent lesion seen within the T5 vertebral body is probably hemangioma given the presence of internal trabeculations Abdomen: Hepatic steatosis incidentally noted. A possible gallstone is noted measuring 1.3 cm on image 62/2 however only partially visualized and technically indeterminate. This could be further investigated with ultrasound as clinically necessary. IMPRESSION: Scattered subsegmental atelectasis and/or scarring. No focal consolidation. Bilateral upper lobe predominant emphysema. Dictated by: Zak Sommers M.D. on 06/27/2020 at 15:53 Approved by: Zak Sommers M.D. on 06/27/2020 at 15:59
== END ==
PROVIDERS: PCP Physician Assistant; Referring Provider Physician Assistant; Visit Provider Physician Assistant
DX: R06.02 Shortness of breath (principal); J43.2 Centrilobular emphysema; K76.0 Fatty (change of) liver, not elsewhere classified; I25.10 Atherosclerotic heart disease of native coronary artery without angina pectoris
CPT/HCPCS: 71260; Q9967

== ENCOUNTER → 2020-07-25 12:04 | Outpatient (CLI) | payer MEDICARE, OTHER, SELFPAY ==
--- NOTE | 2020-07-25 | DI.ECHO.S_ITS ---
[facility]---------+ [facility] +---------+ : : [address] : : : : [id number] : : : : Phone: [phone] Echocardiogram Report + + :Name: ROBERTO COLLINS Study Date: 07/25/2020 Height: 66 in : :[facility] ReadingLocation: Weight: 275 lb : : Gender: Female BSA: 2.3 m2 : :: 1945 Age: 74 yrs BP: 169/77 mmHg: :Reason For Study: Dyspnea : :Ordering Physician: ROBBI, : :KAMILAH Performed By: Jamar Tomas : :Referring: KAMILAH CULP : + + Interpretation Summary 1) Normal left ventricular size, wall motion, and systolic function (EF 65- 70%). 2) Normal right ventricular size and function. 3) No significant valvular abnormalities. 4) Right ventricular systolic pressure is estimated to be 25 mmHg plus the clinically estimated CVP which cannot be estimated on this exam. 5) Compared to the Echo done 11/16/2015, no significant change. Procedure: A two-dimensional transthoracic echocardiogram with color flow and Doppler was performed. The study quality was technically adequate. Comparison is made with the echocardiogram of 11/16/2015. The patient was in sinus rhythm with heart rates between 60-69 bpm during the exam. Left Ventricle: The left ventricle is normal in size. Left ventricular wall thickness is borderline increased. Left ventricular systolic function is normal. The ejection fraction is estimated to be 65-70%. There are no focal wall motion abnormalities. Diastolic function could not be accurately assessed due to contradictory data. Right Ventricle: The right ventricle is normal in size and function. Atria: Both atria are normal in size. There is no Doppler evidence for an interatrial shunt. Mitral Valve: There is moderate mitral annular calcification. There is trace mitral regurgitation. Aortic Valve: There is mild aortic valve sclerosis. There is no aortic valve stenosis. No aortic regurgitation is present. Tricuspid Valve: The tricuspid valve is normal in structure and function. Right ventricular systolic pressure is estimated to be 25 mmHg plus the clinically estimated CVP which cannot be estimated on this exam. There is trace tricuspid regurgitation. Pulmonic Valve: The pulmonic valve is not well seen, but is grossly normal. There is a trace or physiologic amount of pulmonic regurgitation. Great Vessels: The aortic root is normal size. The dimensions of the ascending aorta are normal. The IVC was not well visualized secondary to technical limitations making central venous pressures difficult to estimate. Pericardium/ Pleura There is no pericardial effusion. There is no pleural effusion. MMode/2D Measurements & Calculations LVIDd: 4.8 cm LVOT diam: 1.9 cm LVIDs: 3.0 cm Ao root diam: 3.1 cm FS: 36.3 % asc Aorta Diam: 3.4 cm IVSd: 1.0 cm LVPWd: 0.94 cm LV mobley. diameter/BSA (cm/m^2): 2.1 LV sys. diameter/BSA (cm/m^2): 1.3 LA A2 area: 15.0 cm2 RA long axis: 4.5 cm LA A4 area: 19.3 cm2 RA area: 12.2 cm2 LA length (vol): 5.2 cm RA vol: 27.8 ml LA vol: 47.4 ml RA : 12.1 ml/m2 LA vol index: 20.7 ml/m2 RVD1 (basal): 3.3 cm TAPSE: 2.4 cm Doppler Measurements & Calculations Ao V2 max: 197.2 cm/sec LVOT Max Johny: 122.2 cm/sec Ao V2 mean: 132.7 cm/sec LV V1 max P.0 mmHg Ao max P.6 mmHg LV V1 VTI: 27.6 cm Ao mean P.9 mmHg TAMI(I,D): 2.0 cm2 Ao V2 VTI: 38.3 cm TAMI(V,D): 1.7 cm2 sev ratio: 0.72 TAMI indexed to BSA (cm^2/m^2): 0.86 MV E max johny: 90.3 cm/sec TR max johny: 249.9 cm/sec MV A max johny: 110.1 cm/sec TR max P.0 mmHg MV E/A: 0.82 PA V2 max: 129.8 cm/sec Med Peak E' Johny: 6.5 cm/sec PA V2 mean: 90.2 cm/sec E/E' med: 13.8 PA mean P.5 mmHg Lat Peak E' Johny: 9.2 cm/sec PA pr(Accel): 45.8 mmHg E/E' lat: 9.9 E/e' average: 11.8 MV dec time: 0.35 sec SV(LVOT): 75.6 ml Reading Physician:02:52 PM
== END ==
PROVIDERS: PCP Physician Assistant; Referring Provider Physician Assistant; Visit Provider Internal Medicine Pulmonary Disease
DX: R06.00 Dyspnea, unspecified (principal)
CPT/HCPCS: 93306

== ENCOUNTER → 2020-08-04 12:49 | Outpatient (CLI) | payer MEDICARE, OTHER, SELFPAY ==
[2020-08-04 14:09] LABS: COVID19 -Nasal RAPID Negative (Negative)
== END ==
PROVIDERS: PCP Physician Assistant; Referring Provider Internal Medicine; Visit Provider Internal Medicine
DX: Z20.822 Contact with and (suspected) exposure to COVID-19 (principal)
CPT/HCPCS: 87635; C9803

== ENCOUNTER → 2020-08-05 12:56 | Outpatient (CLI) | payer MEDICARE, OTHER, SELFPAY ==
--- NOTE | 2020-08-10 11:02 | PM.PFT.1 ---
Pulmonary Function Test Referral & Results Date Patient Seen: 08/05/20 Requesting provider: Airam Matamoros Results: The spirometry demonstrates an FVC of 2.76 L which is 89% of predicted. The FEV1 was measured at 1.86 L which is 80% of predicted. The FEV1/FVC ratio was 67 which is 89% of predicted. Following the administration of bronchodilator there was a 16% improvement in FEF 25-75%. Lung volumes show an SVC of 2.65 L which is 89% of predicted. The diffusing capacity was measured at 17.79 which is 66% of predicted. No hemoglobin value was provided, so no correction for potential anemia could be made, if appropriate. The maximum voluntary ventilation was Reduced Interpretation: this study demonstrates perhaps mild obstructive lung disease based on reduction FEV1, although FEV1 / FVC ratio is preserved. There is also a minimal benefit in small airway flow based on improvement in FEF 25-75% as above, after bronchodilator. Shape of flow volume loop also supports obstructive lung disease There is a moderate reduction diffusing capacity suggesting significant disease at the capillary alveolar level
== END ==
PROVIDERS: PCP Physician Assistant; Referring Provider Internal Medicine Pulmonary Disease; Visit Provider Internal Medicine Pulmonary Disease
DX: J98.11 Atelectasis (principal)
CPT/HCPCS: 94060; 94726; 94729

== ENCOUNTER → 2020-08-08 16:04 | Outpatient (CLI) | payer MEDICARE, OTHER, SELFPAY ==
--- NOTE | 2020-08-08 | DI.MG.S_ITS ---
BILATERAL DIGITAL SCREENING MAMMOGRAM 3D/2D WITH CAD: 08/08/2020 CLINICAL: Routine screening. Breast cancer. Comparison is made to exams dated: 04/04/2018 mammogram, 12/10/2016 mammogram, 05/23/2015 mammogram, and 12/29/2013 mammogram - [facility]. There are scattered fibroglandular elements in both breasts. Current study was also evaluated with a Computer Aided Detection (CAD) system. There are benign post operative findings in the left breast. No significant masses, calcifications, or other findings are seen in either breast. There has been no significant interval change. IMPRESSION: BENIGN There is no mammographic evidence of malignancy. A 1 year screening mammogram is recommended. This exam was interpreted at Station ID: [id number]. NOTE: For mammograms, a report in lay terms will be sent to the patient. Approximately 15% of breast malignancies will not be visualized mammographically. In the management of a palpable breast mass, a negative mammogram must not discourage biopsy of a clinically suspicious lesion. Electronically Signed By: Gary arciniega/iain:08/08/2020 23:42:48 letter sent: Normal Exam ACR BI-RADS Category 2: Benign Finding(s) 3342F
== END ==
PROVIDERS: PCP Physician Assistant; Referring Provider Physician Assistant; Visit Provider Physician Assistant
DX: Z12.31 Encounter for screening mammogram for malignant neoplasm of breast (principal); Z85.3 Personal history of malignant neoplasm of breast
CPT/HCPCS: 77063; 77067

== ENCOUNTER → 2021-03-03 14:15 | Outpatient (CLI) | payer MEDICARE, OTHER, SELFPAY ==
[2021-03-03] MEDS: COVID-19 VACC #3, MRNA(MOD) 50 MCG/0.25 ML VIAL IM (14:18)
== END ==
PROVIDERS: PCP Physician Assistant; Visit Provider Internal Medicine
DX: Z23 Encounter for immunization (principal)
CPT/HCPCS: 0013A; 91301

== ENCOUNTER 2021-09-19 20:38 | Inpatient (IN) | payer MEDICARE, OTHER, SELFPAY ==
[2021-09-19 20:41] VITALS: BP 148/101; PULSE 118; RESP 24; TEMP 36.6; O2SAT 95
[2021-09-19 21:02] VITALS: PULSE 105; RESP 20; O2SAT 95
[2021-09-19 21:12] LABS: Hematocrit 44.1 % (36-46); Hemoglobin 15.4 g/dL (12.0-16.0); Mean Corpuscular Hemoglobin 32.1 PG (26-34); Mean Corpuscular Volume 91.6 fL (80-100); Platelet Count 279 X10^3/uL (150-400); Red Blood Cell Count 4.82 X10^6/uL (4.0-5.2); Red Cell Distribution Width 13.2 % (11.6-14.8); White Blood Cell Count 15.2 X10^3/uL (4.5-11.0)
[2021-09-19 21:13] LABS: Add Manual Diff / Slide Review YES
[2021-09-19 21:20] LABS: COVID19 -Nasal RAPID Negative (Negative)
[2021-09-19 21:24] LABS: Alanine Aminotransferase 28 IU/L (<35); Albumin 4.7 g/dL (3.5-5.0); Albumin Globulin Ratio 1.3 (1.0-2.8); Alkaline Phosphatase 112 U/L (38-126); Aspartate Aminotransferase 32 IU/L (14-36); BUN Creatinine Ratio 17.6 (6-22); Bilirubin Total 0.7 mg/dL (0.2-1.3); Blood Urea Nitrogen 13 mg/dL (7-17); Calcium 9.3 mg/dL (8.4-10.2); Carbon Dioxide 20 mmol/L (22-32); Chloride 100 mmol/L (98-107); Estimated Glomerular Filt Rate > 60 mL/min (>60); Globulin 3.5 g/dL (1.7-4.1); Glucose 157 mg/dL (80-110); HEMOLYSIS < 15 (0-50); Lipase 65 U/L (23-300); Potassium 3.8 mmol/L (3.4-5.1); Sodium 133 mmol/L (137-145); Total Protein 8.2 g/dL (6.3-8.2)
[2021-09-19 21:59] LABS: Neutrophils Absolute Manual 12768 /uL (3000-5900); Total Cells Counted 100
[2021-09-19 22:00] LABS: Anisocytosis 1+; Polychromasia 1+
[2021-09-19 22:01] LABS: Macrocytosis 1+
--- NOTE | 2021-09-19 22:09 | DI.CT.S_ITS ---
PROCEDURE: CT ABDOMEN PELVIS W CON INDICATIONS: abdominal pain, bloody diarrhea, cramping TECHNIQUE: After the administration of IV contrast, axial sections were acquired from the lung bases to the pubic symphysis. Coronal and sagittal reformats were performed. For radiation dose reduction, the following was used: automated exposure control, adjustment of mA and/or kV according to patient size. COMPARISON: [facility], CT, ABDOMEN/PELVIS WITH CONTRAST, 11/22/2011, 10:13. FINDINGS: Image quality: There is metallic streak artifact from patient's hip prostheses limiting evaluation. Lung bases: There is dependent atelectasis and scarring bilaterally. Heart: Heart is normal in size. ABDOMEN: Liver: There is hypoattenuation of the liver consistent with fatty infiltration. Gallbladder: Within normal limits without calcified gallstones. Biliary ducts: No biliary ductal dilatation. Pancreas: There is mild fatty atrophy of the pancreas. No pancreatic duct dilatation or discrete pancreatic mass. Spleen: Normal in size. Adrenal Glands: No adrenal nodules. Kidneys and Ureters: No hydronephrosis. Stomach and Bowel: Stomach and small bowel loops are normal in caliber and wall thickness. No evidence of appendicitis. There is segmental wall thickening within the descending and proximal sigmoid colon with mild pericolonic fat stranding consistent with a colitis. Peritoneum: No abnormal intraperitoneal fluid. No free air. Ventral Wall: No hernia. Abdominal Nodes: No retroperitoneal or mesenteric adenopathy by size criteria. Vessels: Aorta and inferior vena cava are normal in size. PELVIS: Pelvic Organs: Unremarkable. Bladder: Unremarkable. Pelvic Nodes: No enlarged lymph nodes. Miscellaneous: No inguinal hernias are seen. Bones: There are bilateral hip prostheses without associated fractures identified. Visualized osseous structures demonstrate no suspicious focal lesions. IMPRESSION: 1. Segmental colonic wall thickening of the descending and proximal sigmoid colon consistent with a nonspecific colitis, likely infectious or inflammatory in etiology. The differential also includes ischemic colitis. 2. Hepatic steatosis. Dictated by: Issa Augustine M.D. on 09/19/2021 at 23:35 Approved by: Issa Augustine M.D. on 09/19/2021 at 23:39
--- NOTE | 2021-09-19 22:25 | PC.NURSE ---
pt has been having diarrhea all day now with blood noted in stool, also c/o abd cramping
[2021-09-19 22:35] LABS: Ictotest Urine Negative (Negative)
[2021-09-19 22:55] LABS: Bacteria Urine None Seen; Hyaline Casts Urine 1-5/LPF; RBC Urine 0-1/HPF (0-5/HPF); Squamous Epithelial Cell Urine 1-5 /HPF (0-5/HPF); WBC Urine 0-1/HPF (0-5/HPF)
[2021-09-19 22:56] LABS: Mucus Urine 1+ (Negative)
[2021-09-19] MEDS: SODIUM CHLORIDE 0.9% 500 ML 1000 ML IV (23:30)
--- NOTE | 2021-09-19 23:30 | PC.NURSE ---
pt up to the bathroom several time d/t diarrhea
[2021-09-19] MEDS: PANTOPRAZOLE 40 MG VIAL IV (23:48)
[2021-09-19] MEDS: ONDANSETRON 4 MG/2 ML INJ IV (23:48)
[2021-09-20] VITALS (8 sets, daily range): BP systolic 147–171; BP diastolic 71–88; PULSE 61–92; RESP 17–19; TEMP 36.3–37.1; O2SAT 95–98; BMI 43.2
[2021-09-20 00:04] LABS: Hematocrit 42.3 % (36-46); Hemoglobin 14.7 g/dL (12.0-16.0)
--- NOTE | 2021-09-20 00:31 | ED_ITS ---
HPI - GI Bleed General Chief complaint: GI Bleed Stated complaint: passing lots of blood rectally Time Seen by Provider: 09/19/21 21:01 Source: patient Mode of arrival: Ambulatory History of Present Illness HPI Narrative: 75-year-old female nonsmoker with history of osteoarthritis, Salmonella, primary insomnia presents with family in the chief complaint of significant abdominal pain, nausea and frequent episodes of bloody diarrhea over the course of the day. She denies any recent travel, antibiotics or obviously bad food. She denies exposure to other ill persons. She has had upwards of 20 bloody stools. She states she has a generalized crampy abdominal pain that has been worsening over the course of the day that is briefly improved after a bowel movement but then quickly returns. She has had no fever but complains of chills. She is becoming short of breath, sweaty, lightheaded and fatigued. Related Data Home Medications Medication Instructions Recorded Confirmed ranitidine HCl 150 mg tablet 150 mg PO BID #0 06/19/16 11/14/17 (Zantac) aspirin 81 mg tablet,delayed 81 mg PO QDAY #0 12/13/16 11/14/17 release cholecalciferol (vitamin D3) 50 1 tab PO QDAY #0 12/13/16 11/14/17 mcg (2,000 unit) tablet (Vitamin D3) amitriptyline 25 mg tablet 25 mg PO BEDTIME 11/14/17 11/14/17 diltiazem HCl 180 mg 360 mg PO DAILY cap 11/14/17 11/14/17 capsule,extended release 24 hr escitalopram oxalate 10 mg tablet 10 mg PO DAILY 11/14/17 11/14/17 (Lexapro) fluticasone furoate 27.5 2 spray NASAL DAILY PRN 11/14/17 11/14/17 mcg/actuation nasal spray,suspension levothyroxine 75 mcg capsule 75 mcg PO DAILY 11/14/17 11/14/17 metoprolol succinate 50 mg 50 mg PO DAILY 11/14/17 11/14/17 tablet,extended release 24 hr (Toprol XL) RespirDexetras Dreamstation CPAP #1 ea 08/28/18 08/28/18 Previous Rx's Medication Instructions Recorded oxycodone-acetaminophen 5 mg-325 1 - 2 tab PO Q4HP PRN #90 tab 09/22/17 mg tablet (Percocet) hydrocodone 5 mg-acetaminophen 325 1 tab PO Q6H PRN #10 tab 02/26/20 mg tablet Allergies Allergy/AdvReac Type Severity Reaction Status Date / Time adhesive tape [ADHESIVE TAPE] Allergy Severe FLARE OF Verified 02/26/20 11:22 ECZEMA nickel [NICKEL] Allergy Severe FLARE OF Verified 02/26/20 11:22 ECZEMA iodine [IODINE] Allergy Mild SKIN RASH Verified 02/26/20 11:22 moxifloxacin [MOXIFLOXACIN] Allergy Mild ITCHING Verified 02/26/20 11:22 amoxicillin [From AUGMENTIN] AdvReac Severe VOMITING Verified 02/26/20 11:22 clavulanic acid AdvReac Severe VIOLENTLY Verified 02/26/20 11:22 [CLAVULANIC ACID] ILL oxycodone [OXYCODONE] AdvReac Severe DELAYED Verified 02/26/20 11:22 DIFFICULTY WITH GAIT Sulfa (Sulfonamide AdvReac Severe NAUSEA, Verified 02/26/20 11:22 Antibiotics) VOMITING [SULFA (SULFONAMIDE ANTIBIOTICS)] levofloxacin [From LEVAQUIN] AdvReac Intermediate VOMITING Verified 02/26/20 11:22 lisinopril [LISINOPRIL] AdvReac Mild cough Verified 02/26/20 11:22 tramadol [TRAMADOL] AdvReac Mild DIZZINESS Verified 02/26/20 11:22 ADHESIVE TAPE Allergy Mild SKIN RASH Uncoded 11/14/17 14:25 Review of Systems Review of Systems Narrative: GENERAL: See HPI HEENT: Denies sinus pain, ear pain, sore throat, difficulty swallowing, dizziness. RESPIRATORY: Denies dyspnea, cough, wheezing, hemoptysis, sputum. CARDIOVASCULAR: Denies chest pain, palpitations, orthopnea, edema, GASTROINTESTINAL: See HPI : Denies dysuria, frequency, incontinence, hematuria, urinary retention. MUSCULOSKELETAL: denies weakness, joint pain, or bony pain SKIN: Denies rash, skin lesions, or other NEUROLOGIC: Denies weakness, headache, numbness, change in speech, confusion, seizures, incoordination. PSYCHIATRIC: No concerning psychosocial issues. 12 point review of systems is negative except for those stated above Patient History Medical History (Updated 09/20/21 @ 00:45 by Satnam Alvares DO) Excessive daytime sleepiness Nocturnal hypoxemia Primary insomnia Surgical History History of hip replacement History of hip replacement History of knee replacement History of knee replacement History of tonsillectomy Status post breast lumpectomy Family History Brother Age: 75 Smoker Alcohol abuse Social History marital status: Smoking Status: Never smoker alcohol intake: current substance use type: does not use Smoking Status: Never smoker alcohol intake frequency: 3 or more drinks per day Alcohol type: hard liquor Substance Use Type: does not use Exam Narrative Exam Narrative: GENERAL: [75 year old patient appears stated age. Well-developed patient, in mild distress. Fatigued, appears ill and worn out HEAD: Atraumatic. Normocephalic. EYES: Pupils equal round and reactive. Extraocular motions intact. No scleral icterus. No injection or drainage. ENT: Nose without bleeding, purulent drainage. Throat without erythema, tonsillar hypertrophy or exudate. Airway patent. NECK: Trachea midline. Non tender CARDIOVASCULAR: Regular rate and rhythm without murmurs, gallops, or rubs. RESPIRATORY: Clear to auscultation. Breath sounds equal bilaterally. No wheezes, rales, or rhonchi. GASTROINTESTINAL: Abdomen soft, generalized tenderness, increased bowel sounds throughout nondistended. EXTREMITIES: No edema or joint tenderness. BACK: Nontender without deformity or crepitance. No flank tenderness. NEURO: AOx3. SKIN: No rash or erythema of visible areas Initial Vital Signs Initial Vital Signs: Vital Signs Temperature 97.8 F 09/19/21 20:41 Pulse Rate 118 H 09/19/21 20:41 Respiratory Rate 24 09/19/21 20:41 Blood Pressure 148/101 H 09/19/21 20:41 Pulse Oximetry 95 09/19/21 20:41 Course Orders Ordered: ED Orders 09/19/21 20:44 EKG-12 Lead Stat 09/19/21 20:55 COVID19 -Nasal RAPID/Pre-Proc Stat Complete Blood Count AUTO DIFF Stat Comprehensive Metabolic Panel Stat Lipase Stat Type and Screen Stat 09/19/21 21:10 GI Panel (Film Array) Stat 09/19/21 22:09 CT abdomen pelvis w con Stat 09/19/21 22:13 Ictotest Urine Stat Urine Culture Stat Urine Microscopic Stat 09/19/21 23:57 HH [Hemoglobin and Hematocrit] Stat 09/20/21 00:39 COVID19 -Nasal RAPID/Pre-Proc Stat Sodium Chloride (Normal Saline 0.9%) 500 mls @ 1,000 mls/hr IV BOLUS ONE Stop: 09/20/21 01:05 Discontinued Medications Ondansetron HCl (Ondansetron 4 Mg/2 Ml Inj) 4 mg IV NOW ONE Stop: 09/19/21 23:44 Last Admin: 09/19/21 23:48 Dose: 4 mg Documented by: NAZARIO Pantoprazole Sodium (Pantoprazole 40 Mg Vial) 40 mg IV NOW ONE Stop: 09/19/21 23:44 Last Admin: 09/19/21 23:48 Dose: 40 mg Documented by: NAZARIO Vital Signs Vital signs: Vital Signs - 8 hr 09/19/21 20:41 Temperature 97.8 F Pulse Rate 118 H Respiratory Rate 24 Blood Pressure 148/101 H Pulse Oximetry 95 MDM - GI Bleed Lab Data Result diagrams: 09/19/21 23:57 09/19/21 20:55 Labs: Lab Results 09/19/21 09/19/21 09/19/21 Range/Units 20:55 20:55 20:55 WBC 15.2 H (4.5-11.0) X10^3/uL RBC 4.82 (4.0-5.2) X10^6/uL Hgb 15.4 (12.0-16.0) g/dL Hct 44.1 (36-46) % MCV 91.6 (80-100) fL MCH 32.1 (26-34) PG MCHC 35.0 (30-36) % RDW 13.2 (11.6-14.8) % Plt Count 279 (150-400) X10^3/uL Neut % (Auto) Not Reportable Lymph % (Auto) Not Reportable [place] % (Auto) Not Reportable Eos % (Auto) Not Reportable Baso % (Auto) Not Reportable Lymph # (Auto) Not Reportable [place] # (Auto) Not Reportable Baso # (Auto) Not Reportable Total Counted 100 Seg Neutrophils % 84.0 H (38-70) % Lymphocytes % (Manual) 7.0 L (25-45) % Monocytes % (Manual) 2.0 (2-11) % Metamyelocytes % 2.0 H (-0) % Myelocytes % 5.0 H (-0) % Neutrophils # (Manual) 07337 H (3023-9903) /uL RBC Morphology See below Polychromasia 1+ H Anisocytosis 1+ H Macrocytosis 1+ H Sodium 133 L (137-145) mmol/L Potassium 3.8 (3.4-5.1) mmol/L Chloride 100 (98-107) mmol/L Carbon Dioxide 20 L (22-32) mmol/L BUN 13 (7-17) mg/dL Creatinine 0.74 (0.52-1.04) mg/dL Estimated GFR > 60 (>60) mL/min BUN/Creatinine Ratio 17.6 (6-22) Glucose 157 H (80-110) mg/dL Calcium 9.3 (8.4-10.2) mg/dL Total Bilirubin 0.7 (0.2-1.3) mg/dL AST 32 (14-36) IU/L ALT 28 (<35) IU/L Alkaline Phosphatase 112 (38-126) U/L Total Protein 8.2 (6.3-8.2) g/dL Albumin 4.7 (3.5-5.0) g/dL Globulin 3.5 (1.7-4.1) g/dL Albumin/Globulin Ratio 1.3 (1.0-2.8) Lipase 65 (23-300) U/L Ur Bilirubin Confirm (Negative) Urine RBC (0-5/HPF) Urine WBC (0-5/HPF) Ur Squamous Epith Cells (0-5/HPF) Urine Bacteria (None) Hyaline Casts (None) Urine Mucus (Negative) Ur Culture Indicated? Micro UA Comment Stl C. cayetanensis PCR (Not Detect) Stool Rotavirus (PCR) (Not Detect) Stool Adenovirus (PCR) (Not Detect) Stool Astrovirus (PCR) (Not Detect) Stool Cryptosporidium PCR (Not Detect) Stl E.coli Shiga Tox PCR (Not Detect) St Sh/Enteroin Ecoli PCR (Not Detect) Stool E coli O157 PCR Stl Enterotoxigenic E PCR (Not Detect) Stool EPEC (PCR) (Not Detect) Stl E. histolytica PCR (Not Detect) Stool Giardia Lamblia PCR (Not Detect) Stool Sapovirus (PCR) (Not Detect) Stl P. shigelloides PCR (Not Detect) St Y.enterocolitica PCR (Not Detect) Stool Vibrio (PCR) (Not Detect) Stl Vibrio cholerae PCR (Not Detect) Stl Enteroaggr Ecoli PCR (Not Detect) Stl Norovirus GI/GII PCR (Not Detect) Campylobacter (PCR) (Not Detect) C. difficile Tox (PCR) (Not Detect) SARS-CoV-2 (PCR) Negative (Negative) Salmonella (PCR) (Not Detect) Blood Type Antibody Screen 09/19/21 09/19/21 09/19/21 Range/Units 20:55 21:10 22:13 WBC (4.5-11.0) X10^3/uL RBC (4.0-5.2) X10^6/uL Hgb (12.0-16.0) g/dL Hct (36-46) % MCV (80-100) fL MCH (26-34) PG MCHC (30-36) % RDW (11.6-14.8) % Plt Count (150-400) X10^3/uL Neut % (Auto) Lymph % (Auto) [place] % (Auto) Eos % (Auto) Baso % (Auto) Lymph # (Auto) [place] # (Auto) Baso # (Auto) Total Counted Seg Neutrophils % (38-70) % Lymphocytes % (Manual) (25-45) % Monocytes % (Manual) (2-11) % Metamyelocytes % (-0) % Myelocytes % (-0) % Neutrophils # (Manual) (8094-3089) /uL RBC Morphology Polychromasia Anisocytosis Macrocytosis Sodium (137-145) mmol/L Potassium (3.4-5.1) mmol/L Chloride (98-107) mmol/L Carbon Dioxide (22-32) mmol/L BUN (7-17) mg/dL Creatinine (0.52-1.04) mg/dL Estimated GFR (>60) mL/min BUN/Creatinine Ratio (6-22) Glucose (80-110) mg/dL Calcium (8.4-10.2) mg/dL Total Bilirubin (0.2-1.3) mg/dL AST (14-36) IU/L ALT (<35) IU/L Alkaline Phosphatase (38-126) U/L Total Protein (6.3-8.2) g/dL Albumin (3.5-5.0) g/dL Globulin (1.7-4.1) g/dL Albumin/Globulin Ratio (1.0-2.8) Lipase (23-300) U/L Ur Bilirubin Confirm Negative (Negative) Urine RBC 0-1/hpf (0-5/HPF) Urine WBC 0-1/hpf (0-5/HPF) Ur Squamous Epith Cells 1-5 /hpf (0-5/HPF) Urine Bacteria None seen (None) Hyaline Casts 1-5/lpf (None) Urine Mucus 1+ H (Negative) Ur Culture Indicated? Culture not indicate Micro UA Comment * Stl C. cayetanensis PCR Not detected (Not Detect) Stool Rotavirus (PCR) Not detected (Not Detect) Stool Adenovirus (PCR) Not detected (Not Detect) Stool Astrovirus (PCR) Not detected (Not Detect) Stool Cryptosporidium PCR Not detected (Not Detect) Stl E.coli Shiga Tox PCR Not detected (Not Detect) St Sh/Enteroin Ecoli PCR Not detected (Not Detect) Stool E coli O157 PCR Not Reportable Stl Enterotoxigenic E PCR Not detected (Not Detect) Stool EPEC (PCR) Not detected (Not Detect) Stl E. histolytica PCR Not detected (Not Detect) Stool Giardia Lamblia PCR Not detected (Not Detect) Stool Sapovirus (PCR) Not detected (Not Detect) Stl P. shigelloides PCR Not detected (Not Detect) St Y.enterocolitica PCR Not detected (Not Detect) Stool Vibrio (PCR) Not detected (Not Detect) Stl Vibrio cholerae PCR Not detected (Not Detect) Stl Enteroaggr Ecoli PCR Not detected (Not Detect) Stl Norovirus GI/GII PCR Not detected (Not Detect) Campylobacter (PCR) Not detected (Not Detect) C. difficile Tox (PCR) Not detected (Not Detect) SARS-CoV-2 (PCR) (Negative) Salmonella (PCR) Not detected (Not Detect) Blood Type A Positive Antibody Screen Negative 09/19/21 Range/Units 23:57 WBC (4.5-11.0) X10^3/uL RBC (4.0-5.2) X10^6/uL Hgb 14.7 (12.0-16.0) g/dL Hct 42.3 (36-46) % MCV (80-100) fL MCH (26-34) PG MCHC (30-36) % RDW (11.6-14.8) % Plt Count (150-400) X10^3/uL Neut % (Auto) Lymph % (Auto) [place] % (Auto) Eos % (Auto) Baso % (Auto) Lymph # (Auto) [place] # (Auto) Baso # (Auto) Total Counted Seg Neutrophils % (38-70) % Lymphocytes % (Manual) (25-45) % Monocytes % (Manual) (2-11) % Metamyelocytes % (-0) % Myelocytes % (-0) % Neutrophils # (Manual) (8726-5848) /uL RBC Morphology Polychromasia Anisocytosis Macrocytosis Sodium (137-145) mmol/L Potassium (3.4-5.1) mmol/L Chloride (98-107) mmol/L Carbon Dioxide (22-32) mmol/L BUN (7-17) mg/dL Creatinine (0.52-1.04) mg/dL Estimated GFR (>60) mL/min BUN/Creatinine Ratio (6-22) Glucose (80-110) mg/dL Calcium (8.4-10.2) mg/dL Total Bilirubin (0.2-1.3) mg/dL AST (14-36) IU/L ALT (<35) IU/L Alkaline Phosphatase (38-126) U/L Total Protein (6.3-8.2) g/dL Albumin (3.5-5.0) g/dL Globulin (1.7-4.1) g/dL Albumin/Globulin Ratio (1.0-2.8) Lipase (23-300) U/L Ur Bilirubin Confirm (Negative) Urine RBC (0-5/HPF) Urine WBC (0-5/HPF) Ur Squamous Epith Cells (0-5/HPF) Urine Bacteria (None) Hyaline Casts (None) Urine Mucus (Negative) Ur Culture Indicated? Micro UA Comment Stl C. cayetanensis PCR (Not Detect) Stool Rotavirus (PCR) (Not Detect) Stool Adenovirus (PCR) (Not Detect) Stool Astrovirus (PCR) (Not Detect) Stool Cryptosporidium PCR (Not Detect) Stl E.coli Shiga Tox PCR (Not Detect) St Sh/Enteroin Ecoli PCR (Not Detect) Stool E coli O157 PCR Stl Enterotoxigenic E PCR (Not Detect) Stool EPEC (PCR) (Not Detect) Stl E. histolytica PCR (Not Detect) Stool Giardia Lamblia PCR (Not Detect) Stool Sapovirus (PCR) (Not Detect) Stl P. shigelloides PCR (Not Detect) St Y.enterocolitica PCR (Not Detect) Stool Vibrio (PCR) (Not Detect) Stl Vibrio cholerae PCR (Not Detect) Stl Enteroaggr Ecoli PCR (Not Detect) Stl Norovirus GI/GII PCR (Not Detect) Campylobacter (PCR) (Not Detect) C. difficile Tox (PCR) (Not Detect) SARS-CoV-2 (PCR) (Negative) Salmonella (PCR) (Not Detect) Blood Type Antibody Screen Point of Care Testing Stool Occult Blood Positive Urine Dip Bedside Urine Glucose Negative Bedside Urine Bilirubin + 1 Bedside Urine Ketone +/- 5 Urine Specific [place] 1.015 Bedside Urine Occult Blood +/- Bedside Urine pH 6.5 Bedside Urine Protein +++ 300 Bedside Urine Urobilinogen - Negative Bedside Urine Nitrite - Negative Bedside Urine Leukocytes +/- [address] scan - abdomen/pelvis: Radiologist's Impression: Sandee Salgado??75??F??1945 ? Allergy/Adv: adhesive tape, nickel, iodine, moxifloxacin, amoxicillin, clavulanic acid, oxycodone, Sulfa (Sulfonamide Antibiotics), levofloxacin, lisinopril, tramadol, [ADHESIVE TAPE] (More??) Close Abdomen/Pelvis CT (Signed) Issa Augustine - 09/19/21 Mammogram Screening (Signed) Gary Pool - 08/08/20 Echocardiogram Ultrasound (Signed) Edyta Herron - 07/25/[address] (Signed) Zak Sommers - 06/27/20 Chest X-Ray (Signed) Noel Rodriguez - 06/20/20 Ribs X-Ray (Signed) Noel Rodriguez - 02/26/20 Thoracic Spine X-Ray (Signed) Ankita Zacarias - 11/26/19 Lumbar Spine X-Ray (Signed) Ankita Zacarias - 11/26/19 Cervical Spine X-Ray (Signed) Ankita Zacarias - 11/26/19 Finger X-Ray (Signed) Marilia De León - 04/15/19 Mammogram Screening (Signed) ShakalauraThelma chacon - 04/04/[address] (Signed) Chele Reynoldsley - 02/25/18 Radiology - Historical 01/03/17 Radiology - Historical 07/03/16 Radiology - Historical 06/18/16 Radiology - Historical 10/20/15 Radiology - Historical 10/19/15 Radiology - Historical 10/19/15 Launch?[place] [address] CT Scan Report Signed Patient: Sandee Salgado MR#: [id number] : 1945 Acct:[id number] Age/Sex: 75 / F Date of Service: 09/19/21 Loc: ED Accession Number: [id number] ?? Procedure: CT abdomen pelvis w con Ordering Provider: Satnam Alvares D.O. PROCEDURE:? CT ABDOMEN PELVIS W CON ? INDICATIONS:? abdominal pain, bloody diarrhea, cramping ? TECHNIQUE:? After the administration of IV contrast, axial sections were acquired from the lung bases to the pubic symphysis.? Coronal and sagittal reformats were performed.? For radiation dose reduction, the following was used:? automated exposure control, adjustment of mA and/or kV according to patient size. ? COMPARISON:? [facility], CT, ABDOMEN/PELVIS WITH CONTRAST, 11/22/2011, 10:13. ? FINDINGS:? Image quality:? There is metallic streak artifact from patient's hip prostheses limiting evaluation.? ? Lung bases:? There is dependent atelectasis and scarring bilaterally.? ? Heart:? Heart is normal in size. ? ? ABDOMEN: Liver:? There is hypoattenuation of the liver consistent with fatty infiltration. Gallbladder:? Within normal limits without calcified gallstones.? ? Biliary ducts:? No biliary ductal dilatation.? ? Pancreas:? There is mild fatty atrophy of the pancreas.? No pancreatic duct dilatation or discrete pancreatic mass.? ? Spleen:? Normal in size.? ? Adrenal Glands:? No adrenal nodules.? ? Kidneys and Ureters:? No hydronephrosis.? ? ? Stomach and Bowel:? Stomach and small bowel loops are normal in caliber and wall thickness.? No evidence of appendicitis.? There is segmental wall thickening within the descending and proximal sigmoid colon with mild pericolonic fat stranding consistent with a colitis. Peritoneum:? No abnormal intraperitoneal fluid.? No free air.? ? Ventral Wall: ? No hernia.? Abdominal Nodes:? No retroperitoneal or mesenteric adenopathy by size criteria.? Vessels:? Aorta and inferior vena cava are normal in size.? ? PELVIS: Pelvic Organs:? Unremarkable.? ? Bladder:? Unremarkable.? ? Pelvic Nodes: No enlarged lymph nodes.? Miscellaneous: No inguinal hernias are seen. ? ? ? Bones:? There are bilateral hip prostheses without associated fractures identified.? Visualized osseous structures demonstrate no suspicious focal lesions. ? IMPRESSION:? ? 1. Segmental colonic wall thickening of the descending and proximal sigmoid colon consistent with a nonspecific colitis, likely infectious or inflammatory in etiology.? The differential also includes ischemic colitis. ? 2. Hepatic steatosis.? ? ? Dictated by: Issa Augustine M.D. on 09/19/2021 at 23:35 ? ? Approved by: Issa Augustine M.D. on 09/19/2021 at 23:39 ? [place] Narrative Medical decision making narrative: Patient with Riddhi episodes of bloody stool, increasing to mostly blood over th e course of the day. She is becoming quite fatigued and now with minimal exertion she becomes significantly winded. She has had poor oral intake in his barely able to tolerate ice chips. Her repeat H&H is reassuring and GI panel shows no obvious infectious source that would respond to antibiotics. Patient will require hospitalization to continue to monitor stabilize her condition and intervene if needed. Discharge Plan Departure Patient Disposition: Admitted as Observation Clinical Impression: Acute GI bleeding, Colitis
[2021-09-20 00:32] LABS: Adenovirus F 40/41 Not Detected (Not Detect); Astrovirus Not Detected (Not Detect); Campylobacter Not Detected (Not Detect); Clostridium difficile toxin AB Not Detected (Not Detect); Cryptosporidium Not Detected (Not Detect); Cyclospora cayetanensis Not Detected (Not Detect); Entamoeba histolytica Not Detected (Not Detect); Enteroaggregative E.coli Not Detected (Not Detect); Enteropathogenic E.coli Not Detected (Not Detect); Enterotoxigenic E.coli It/st Not Detected (Not Detect); Giardia lamblia Not Detected (Not Detect); Norovirus GI/GII Not Detected (Not Detect); Plesiomonsa shigelloides Not Detected (Not Detect); Rotavirus A Not Detected (Not Detect); Salmonella Not Detected (Not Detect); Sapovirus Not Detected (Not Detect); Shiga-like toxin-prod E.coli Not Detected (Not Detect); Shigella/Enteroinvasive E.coli Not Detected (Not Detect); Vibrio Not Detected (Not Detect); Vibrio cholerae Not Detected (Not Detect); Yersinia enterocolitica Not Detected (Not Detect)
[2021-09-20] MEDS: SODIUM CHLORIDE 0.9% 1,000 ML 100 ML IV (01:38)
[2021-09-20 01:47] LABS: Hemoglobin 13.9 g/dL (12.0-16.0); Mean Corpuscular Volume 91.3 fL (80-100); Platelet Count 261 X10^3/uL (150-400); Red Blood Cell Count 4.49 X10^6/uL (4.0-5.2); Red Cell Distribution Width 13.3 % (11.6-14.8); White Blood Cell Count 12.5 X10^3/uL (4.5-11.0)
[2021-09-20 01:48] LABS: Add Manual Diff / Slide Review YES
--- NOTE | 2021-09-20 01:56 | P.HP_ITS ---
History of Present Illness History of Present Illness Date Patient Seen: 09/20/21 Time Patient Seen: 01:56 Chief complaint: passing lots of blood rectally Narrative: Sandee Salgado is a 75 y.o. female with hypertension, anxiety, morbid obesity, and osteoarthritis presented to the emergency room today with a 1 day history gastroenteritis that started out with diarrhea and then became bloody stool. She states that she had a colonoscopy done by Dr. Hameed and it was clear. States initially started with diarrhea and cramps shortly after arising in the morning of April 21. She states she was up every few minutes had nausea but did not have any vomiting. She also had a headache during that time. Then in the afternoon she started to notice that she had blood in her stool and in the evening she was pretty much only putting out bright blood. She endorses having sweats or chills but no fever, denies chest pain or shortness of breath. CT of the abdomen and pelvis indicated colonic wall thickening of the descending and proximal sigmoid colon consistent with a nonspecific colitis likely infectious or inflammatory also with concern with ischemic colitis. She is afebrile, blood pressure 164/79, heart rate 92, respiratory rate 18, oxygen saturation of 98% on room air she weighs 121.5 kg with a BMI of 43.2. On presentation to the emergency department her white count was 15.2 and a 2nd draw was done and white count was 12.5 she has had a reduction in her hemoglobin and hematocrit initially 14.7 and 42.3 respectively now 13.9 and 41. She does have a left shift of 12,000, also with an abnormal peripheral smear, sodium was 133, bicarb 20, glucose 157, UA is negative for UTI, stool overall OG PCRs are all negative, COVID-19 PCR is negative. Stool H pylori is pending. Patient History Medical History Excessive daytime sleepiness Nocturnal hypoxemia Primary insomnia Surgical History History of hip replacement History of hip replacement History of knee replacement History of knee replacement History of tonsillectomy Status post breast lumpectomy Family & Social History Family History (Updated 09/20/21 @ 01:57 by AVELINO Sheldon) Brother Age: 75 Smoker Alcohol abuse Mother Ovarian cancer Social History: household members spouse Prior Living Arrangements House Safety & Behavioral: Feels Safe in Current Yes Environment Been Physically Hurt or No Threatened By a Person Tobacco & Substance use: Smoking Status Never smoker alcohol intake current alcohol intake frequency 3 or more gin and tonics per day Substance Use Type does not use Meds Home Medications and Allergies Home Medications Medication Instructions Recorded Confirmed Type aspirin 81 mg tablet,delayed 81 mg PO QDAY #0 12/13/16 11/14/17 History release diltiazem HCl 180 mg 360 mg PO DAILY cap 11/14/17 11/14/17 History capsule,extended release 24 hr fluticasone furoate 27.5 2 spray NASAL DAILY PRN 11/14/17 11/14/17 History mcg/actuation nasal spray,suspension levothyroxine 75 mcg capsule 75 mcg PO DAILY 11/14/17 11/14/17 History metoprolol succinate 50 mg 50 mg PO DAILY 11/14/17 11/14/17 History tablet,extended release 24 hr (Toprol XL) cholecalciferol (vitamin D3) 125 125 mcg PO DAILY 09/20/21 09/20/21 History mcg (5,000 unit) capsule duloxetine 60 mg capsule,delayed 60 mg PO DAILY 09/20/21 09/20/21 History release (Cymbalta) Allergies Allergy/AdvReac Type Severity Reaction Status Date / Time adhesive tape [ADHESIVE TAPE] Allergy Severe FLARE OF Verified 02/26/20 11:22 ECZEMA nickel [NICKEL] Allergy Severe FLARE OF Verified 02/26/20 11:22 ECZEMA iodine [IODINE] Allergy Mild SKIN RASH Verified 02/26/20 11:22 moxifloxacin [MOXIFLOXACIN] Allergy Mild ITCHING Verified 02/26/20 11:22 amoxicillin [From AUGMENTIN] AdvReac Severe VOMITING Verified 02/26/20 11:22 clavulanic acid AdvReac Severe VIOLENTLY Verified 02/26/20 11:22 [CLAVULANIC ACID] ILL oxycodone [OXYCODONE] AdvReac Severe DELAYED Verified 02/26/20 11:22 DIFFICULTY WITH GAIT Sulfa (Sulfonamide AdvReac Severe NAUSEA, Verified 02/26/20 11:22 Antibiotics) VOMITING [SULFA (SULFONAMIDE ANTIBIOTICS)] levofloxacin [From LEVAQUIN] AdvReac Intermediate VOMITING Verified 02/26/20 11:22 lisinopril [LISINOPRIL] AdvReac Mild cough Verified 02/26/20 11:22 tramadol [TRAMADOL] AdvReac Mild DIZZINESS Verified 02/26/20 11:22 ADHESIVE TAPE Allergy Mild SKIN RASH Uncoded 11/14/17 14:25 Review of Systems Review of Systems ROS: Yes All systems reviewed with the patient and are negative except as otherwise documented Exam Vital Signs (past 8 hours): - 09/19/21 20:41 09/19/21 21:02 09/20/21 01:10 Temperature 97.8 F 98.7 F Pulse Rate 118 H 105 H 92 H Respiratory Rate 24 20 18 Blood Pressure 148/101 H 164/79 H Pulse Oximetry 95 95 98 Oxygen Delivery Method Room Air Oxygen Flow Rate 0 Narrative Exam Narrative: Gen: Alert, oriented, morbidly obese 75 y.o. female, appears uncomfortable HEENT: normocephalic, atraumatic, conjunctiva clear, sclera non-icteric, oral mucosa pink and moist Neck: supple, full ROM, no JVD, trachea is midline Resp: Lungs CTA, non-labored breathing CV: RRR, no murmur or rubs Abd: soft, non-tender, normoactive BTs Skin: no lesions or rashes, dry and intact Neuro: Alert and oriented X 4 w/no focal deficits. Speech clear and coherent. Extremities: moves all 4 extremities, is ambulatory, negative Zac?s sign Psyche: anxious, pleasant Objective Labs Result Diagrams: 09/20/21 01:35 09/19/21 20:55 Labs: Laboratory Results - last 24 hr 09/19/21 09/19/21 09/19/21 20:55 20:55 20:55 WBC 15.2 H RBC 4.82 Hgb 15.4 Hct 44.1 MCV 91.6 MCH 32.1 MCHC 35.0 RDW 13.2 Plt Count 279 Neut % (Auto) Not Reportable Lymph % (Auto) Not Reportable [place] % (Auto) Not Reportable Eos % (Auto) Not Reportable Baso % (Auto) Not Reportable Lymph # (Auto) Not Reportable [place] # (Auto) Not Reportable Baso # (Auto) Not Reportable Total Counted 100 Seg Neutrophils % 84.0 H Lymphocytes % (Manual) 7.0 L Monocytes % (Manual) 2.0 Metamyelocytes % 2.0 H Myelocytes % 5.0 H Neutrophils # (Manual) 50451 H RBC Morphology See below Polychromasia 1+ H Anisocytosis 1+ H Macrocytosis 1+ H Sodium 133 L Potassium 3.8 Chloride 100 Carbon Dioxide 20 L BUN 13 Creatinine 0.74 Estimated GFR > 60 BUN/Creatinine Ratio 17.6 Glucose 157 H Calcium 9.3 Total Bilirubin 0.7 AST 32 ALT 28 Alkaline Phosphatase 112 Total Protein 8.2 Albumin 4.7 Globulin 3.5 Albumin/Globulin Ratio 1.3 Lipase 65 Ur Bilirubin Confirm Urine RBC Urine WBC Ur Squamous Epith Cells Urine Bacteria Hyaline Casts Urine Mucus Ur Culture Indicated? Micro UA Comment Stl C. cayetanensis PCR Stool Rotavirus (PCR) Stool Adenovirus (PCR) Stool Astrovirus (PCR) Stool Cryptosporidium PCR Stl E.coli Shiga Tox PCR St Sh/Enteroin Ecoli PCR Stool E coli O157 PCR Stl Enterotoxigenic E PCR Stool EPEC (PCR) Stl E. histolytica PCR Stool Giardia Lamblia PCR Stool Sapovirus (PCR) Stl P. shigelloides PCR St Y.enterocolitica PCR Stool Vibrio (PCR) Stl Vibrio cholerae PCR Stl Enteroaggr Ecoli PCR Stl Norovirus GI/GII PCR Campylobacter (PCR) C. difficile Tox (PCR) SARS-CoV-2 (PCR) Negative Salmonella (PCR) Blood Type Antibody Screen 09/19/21 09/19/21 09/19/21 20:55 21:10 22:13 WBC RBC Hgb Hct MCV MCH MCHC RDW Plt Count Neut % (Auto) Lymph % (Auto) [place] % (Auto) Eos % (Auto) Baso % (Auto) Lymph # (Auto) [place] # (Auto) Baso # (Auto) Total Counted Seg Neutrophils % Lymphocytes % (Manual) Monocytes % (Manual) Metamyelocytes % Myelocytes % Neutrophils # (Manual) RBC Morphology Polychromasia Anisocytosis Macrocytosis Sodium Potassium Chloride Carbon Dioxide BUN Creatinine Estimated GFR BUN/Creatinine Ratio Glucose Calcium Total Bilirubin AST ALT Alkaline Phosphatase Total Protein Albumin Globulin Albumin/Globulin Ratio Lipase Ur Bilirubin Confirm Negative Urine RBC 0-1/hpf Urine WBC 0-1/hpf Ur Squamous Epith Cells 1-5 /hpf Urine Bacteria None seen Hyaline Casts 1-5/lpf Urine Mucus 1+ H Ur Culture Indicated? Culture not indicate Micro UA Comment * Stl C. cayetanensis PCR Not detected Stool Rotavirus (PCR) Not detected Stool Adenovirus (PCR) Not detected Stool Astrovirus (PCR) Not detected Stool Cryptosporidium PCR Not detected Stl E.coli Shiga Tox PCR Not detected St Sh/Enteroin Ecoli PCR Not detected Stool E coli O157 PCR Not Reportable Stl Enterotoxigenic E PCR Not detected Stool EPEC (PCR) Not detected Stl E. histolytica PCR Not detected Stool Giardia Lamblia PCR Not detected Stool Sapovirus (PCR) Not detected Stl P. shigelloides PCR Not detected St Y.enterocolitica PCR Not detected Stool Vibrio (PCR) Not detected Stl Vibrio cholerae PCR Not detected Stl Enteroaggr Ecoli PCR Not detected Stl Norovirus GI/GII PCR Not detected Campylobacter (PCR) Not detected C. difficile Tox (PCR) Not detected SARS-CoV-2 (PCR) Salmonella (PCR) Not detected Blood Type A Positive Antibody Screen Negative 09/19/21 09/20/21 23:57 01:35 WBC 12.5 H RBC 4.49 Hgb 14.7 13.9 Hct 42.3 41.0 MCV 91.3 MCH 31.0 MCHC 34.0 RDW 13.3 Plt Count 261 Neut % (Auto) Not Reportable Lymph % (Auto) Not Reportable [place] % (Auto) Not Reportable Eos % (Auto) Not Reportable Baso % (Auto) Not Reportable Lymph # (Auto) Not Reportable [place] # (Auto) Not Reportable Baso # (Auto) Not Reportable Total Counted Seg Neutrophils % Lymphocytes % (Manual) Monocytes % (Manual) Metamyelocytes % Myelocytes % Neutrophils # (Manual) RBC Morphology Polychromasia Anisocytosis Macrocytosis Sodium Potassium Chloride Carbon Dioxide BUN Creatinine Estimated GFR BUN/Creatinine Ratio Glucose Calcium Total Bilirubin AST ALT Alkaline Phosphatase Total Protein Albumin Globulin Albumin/Globulin Ratio Lipase Ur Bilirubin Confirm Urine RBC Urine WBC Ur Squamous Epith Cells Urine Bacteria Hyaline Casts Urine Mucus Ur Culture Indicated? Micro UA Comment Stl C. cayetanensis PCR Stool Rotavirus (PCR) Stool Adenovirus (PCR) Stool Astrovirus (PCR) Stool Cryptosporidium PCR Stl E.coli Shiga Tox PCR St Sh/Enteroin Ecoli PCR Stool E coli O157 PCR Stl Enterotoxigenic E PCR Stool EPEC (PCR) Stl E. histolytica PCR Stool Giardia Lamblia PCR Stool Sapovirus (PCR) Stl P. shigelloides PCR St Y.enterocolitica PCR Stool Vibrio (PCR) Stl Vibrio cholerae PCR Stl Enteroaggr Ecoli PCR Stl Norovirus GI/GII PCR Campylobacter (PCR) C. difficile Tox (PCR) SARS-CoV-2 (PCR) Salmonella (PCR) Blood Type Antibody Screen Assessment & Plan Assessment & Plan narrative: Sandee Salgado will be placed into observation for further workup and management of an intractable colitis. Intractible diarrhea and melana, acute and present on admission * She will have hemoglobin and hematocrits drawn q 6 hours * Have requested surgical consultation, Dr. Rehman needs to be called at 7 am * I have started her on IV metronidiazole for anti-inflammatory effect * IV morphine for pain and IV zofran for nausea * NPO except ice and meds, progress to clears in the am. * IVF NS at 150 ml/hour Essential hypertension, currently not well controlled * Elevated blood pressure may be due to pain and/or necessity of having frequent bowel movements * Continue home doses of diltiazem and metoprolol Generalized anxiety disorder, chronic * Continue home dose of Escitalopram 20 mg po daily Hypothyroidism, chronic * Continue home dose of levothyroxine 75 mcg po daily VTE Prophylaxis: Wells risk score 0 [X] Bilateral SCDs pharmacological anticoagulation contraindicated in the setting of active bleeding Patient is placed into observation as her stay is not expected to exceed 2 midnights. FEN: IV fluids: NS at 150 ml/hour, diet: NPO except ice and meds, labs: CBC, C/BMP, liver enzymes, Mag, PT/INR Consultants Dr. Rehman, care and involvement in the patient?s care is appreciated. Dispo: Unknown at this time Code status: Full Code as discussed with the patient who identifies her Ilda Lion her surrogates and POA. [X] I have utilized all available immediate resources to obtain, update, or review of the patient's current medications COVID-19 COVID-19 status: Negative Result date/Date tested (Pos, Neg/Pending): 09/20/21 Scores Wells' Criteria for PE Clinical signs and symptoms of DVT: No PE is #1 Dx or equally likely: No Heart rate > 100: No Immobilization at least 3 days or surg in previous 4 weeks: No History of PE or DVT: No Hemoptysis: No Malignancy w/Treatment within 6 months or palliative: No Wells' PE Score total: 0 Quality VTE Deep Vein Thrombosis/Pulmonary Embolism Present on Admission: No MIPS - Admit I confirm the patient?s Advance Care Plan is present, Code status is documented, Surrogate decision maker is in patient?s record [If Yes, STOP here]: Yes MIPS - DC The patient has current or prior documentation of left ventricular ejection fraction (LVEF) less than 40%, or moderate or severely depressed left ventricular systolic function.: No
[2021-09-20] MEDS: metroNIDAZOLE 500 MG/100 ML PIGGYBACK 100 MG IV ×4 (02:03→23:28)
[2021-09-20] MEDS: METOPROLOL ER 50 MG TABLET PO ×2 (02:04→08:21)
[2021-09-20] MEDS: ACETAMINOPHEN 325 MG TABLET 650 MG PO ×2 (02:04→08:37)
--- NOTE | 2021-09-20 02:08 | PC.NURSE ---
[id number] Ilda [phone] call if needed
[2021-09-20 02:40] LABS: Hemoglobin A1C% w Est Avg Glu 5.4 % (4.0-6.0)
[2021-09-20] MEDS: MORPHINE 2 MG/ML INJ 1 MG IV ×4 (02:45→21:56)
[2021-09-20 05:19] LABS: Appearance Urine UA CLEAR; Bilirubin Urine UA NEGATIVE (NEGATIVE); Color Urine UA YELLOW; Glucose Urine UA NEGATIVE (Negative); Ketones Urine UA NEGATIVE (NEGATIVE); Leukocyte Esterase Urine UA NEGATIVE (NEGATIVE); Nitrite Urine UA NEGATIVE (Negative); Occult Blood Urine UA TRACE-LYSED (Negative); Protein Urine UA NEGATIVE (Negative); Specific Gravity Urine UA <=1.005 (1.000-1.035); Urobilinogen Urine UA 0.2 E.U./dL (0.2)
[2021-09-20 05:21] LABS: pH Urine UA 7.5 (4.5-8.0)
[2021-09-20 05:43] LABS: BUN Creatinine Ratio 19.4 (6-22); Blood Urea Nitrogen 13 mg/dL (7-17); Calcium 8.7 mg/dL (8.4-10.2); Carbon Dioxide 18 mmol/L (22-32); Chloride 106 mmol/L (98-107); Estimated Glomerular Filt Rate > 60 mL/min (>60); Glucose 122 mg/dL (80-110); HEMOLYSIS < 15 (0-50); Magnesium 2.1 mg/dL (1.6-2.3); Sodium 134 mmol/L (137-145)
[2021-09-20 06:21] LABS: Bacteria Urine None Seen; Culture Indicated Urine Cult Not Indicated; RBC Urine None Seen (0-5/HPF); Squamous Epithelial Cell Urine 0-1 /HPF (0-5/HPF); WBC Urine None Seen (0-5/HPF)
[2021-09-20] MEDS: LEVOTHYROXINE 75 MCG TABLET PO (06:26)
[2021-09-20 07:19] LABS: Neutrophils Absolute Manual 9875 /uL (3000-5900); Total Cells Counted 100
[2021-09-20 07:21] LABS: RBC Morphology Normal Morphology
[2021-09-20] MEDS: PANTOPRAZOLE 40 MG VIAL IV (08:21)
[2021-09-20] MEDS: dilTIAZem CD 180 MG CAP PO (08:21)
--- NOTE | 2021-09-20 08:44 | PC.NURSE ---
Addendum entered by Amira Zarate R.N. 09/20/21 14:57: into see patient and states that she will have a colonoscopy outpatient. Addendum entered by Amira Zarate R.N. 09/20/21 12:01: Patient given morphine 1mg for her abdominal pain. She talked to the doctor and is resting now. No further needs at this time. Original Note: Assess- Patient is alert and oriented x3, she states that her pain to her abdomen is 8/10, morphine just given at 0630, tylenol given now. She did have a bowel movement with small clots and red blood in her stool. Patient up with one person assist to use the bathroom. Bowel tones are hypoactive. Patient is resting at this time. She guiaced positive for blood in stool.
[2021-09-20 09:05] LABS: Add Manual Diff / Slide Review NO; Basophils Absolute Auto 0 /uL (0-100); Basophils Percent Auto 0.4 % (0-2); Eosinophils Absolute Auto 100 /uL (0-450); Eosinophils Percent Auto 0.6 % (2-4); Hematocrit 41.5 % (36-46); Lymphocytes Absolute Auto 2000 /uL (1100-4500); Lymphocytes Percent Auto 21.5 % (25-40); Mean Corpuscular HGB Conc 33.7 % (30-36); Mean Corpuscular Hemoglobin 31.4 PG (26-34); Monocytes Absolute Auto 1000 /uL (0-900); Monocytes Percent Auto 10.9 % (3-14); Neutrophils Absolute Auto 6300 /uL (1500-7000); Neutrophils Percent Auto 66.6 % (50-75); Platelet Count 251 X10^3/uL (150-400); Red Blood Cell Count 4.46 X10^6/uL (4.0-5.2); Red Cell Distribution Width 13.1 % (11.6-14.8); White Blood Cell Count 9.5 X10^3/uL (4.5-11.0)
[2021-09-20] MEDS: SODIUM CHLORIDE 0.9% 1,000 ML 150 ML IV ×2 (10:40→18:43)
[2021-09-20 12:25] LABS: Hematocrit 38.9 % (36-46); Hemoglobin 13.2 g/dL (12.0-16.0)
--- NOTE | 2021-09-20 13:30 | CM.DANOTE ---
Addendum entered by KHANG Hensley 09/20/21 14:43: ADD: SW met bedside with pt and explained role and she confirms she lives at home with her spouse in [place] and has two local sons and Dtr inlaws that assist when needed and are very supportive. Spouse states she still drives but that her and spouse have remained mostly at home the past 2 years with COVID happening but pt still orders groceries online at [employer] and then drives to pick them up. Pt denies any other supportive formal services in place and states her spouse can assist but he also has neuropathy in his feet which limits him some. Pt states she is feeling slightly better but still some abdominal pain and cramping and not medically stable to d/c yet and still awaiting Surgeon Consult and recommendations and remains NPO currently. Pt anticipates d/c to home with spouse and family support and does not currently anticipate any needs. Plan: SW to follow closely for Surgeon recommendation to determine POC and any d/c planning needs. KHANG Hensley Original Note: Patient is a 75 yo female who was admitted on 09/20/21 for Poss GI Bleed. Pt has MCR and REG UNIF for insurance and her PCP is Vanesa Arechiga. EMR was reviewed. Per MD, pt with hx of hypertension, obesity, osteoarthritis, and admitted for gastroenteritis, intractable diarrhea, colitis. Pt with recent colonoscopy by Dr. Hameed that resulted in normal results. Pt currently on IV-Abx and to check H&H and stool tested guiac +. Pt was last admitted to [facility] in 2017. SW attempted to meet bedside with pt but in the bathroom. Plan: SW to follow for bedside assessment to determine d/c planning needs later today when pt available. KHANG Hensley Discharge Planning/Care Management CM Discharge Assessment Start: 09/20/21 13:28 Freq: Status: Active Protocol: Document 09/20/21 13:28 BF (Rec: 09/20/21 13:30 BF [id number]) Discharge Planning Assessment Assigned Iap Displays Analyst KHANG Hair DPOA/Assigned Designee Name Spouse Amisha Gonsales Contact Information [phone] Advance Directives? Yes Advance Directives on File No History Provided By Patient,Family Member,Medical Record Has Patient been admitted in last 30 No days? Prior Living Arrangements House Household Members spouse Type of transporation used prior to Relies on Others admit Independent with ADL's Yes Is patient alert and oriented? Yes Caregiver for Another No Comment Pending progress and needs Barriers to Discharge No Discharge Plan Home Transportation Arrangement If safe for home, pt has lots of family to provide transport home Additional Comment Pending progress and needs Whiteboard Updated in Patient Room with Yes name and ext. # of Iap Displays Analyst Review Status In Process Please Provide Date Initial DC 09/20/21 Assessment Was Performed Next Review Type Continued Stay Review
[2021-09-20 13:46] LABS: Add Manual Diff / Slide Review NO; Basophils Absolute Auto 100 /uL (0-100); Basophils Percent Auto 0.8 % (0-2); Eosinophils Absolute Auto 100 /uL (0-450); Eosinophils Percent Auto 0.6 % (2-4); Hematocrit 39.1 % (36-46); Hemoglobin 13.4 g/dL (12.0-16.0); Lymphocytes Absolute Auto 1600 /uL (1100-4500); Lymphocytes Percent Auto 16.4 % (25-40); Mean Corpuscular HGB Conc 34.2 % (30-36); Mean Corpuscular Hemoglobin 31.7 PG (26-34); Mean Corpuscular Volume 92.7 fL (80-100); Monocytes Absolute Auto 1000 /uL (0-900); Monocytes Percent Auto 10.6 % (3-14); Neutrophils Absolute Auto 7000 /uL (1500-7000); Neutrophils Percent Auto 71.6 % (50-75); Platelet Count 229 X10^3/uL (150-400); Red Blood Cell Count 4.22 X10^6/uL (4.0-5.2); Red Cell Distribution Width 13.3 % (11.6-14.8); White Blood Cell Count 9.8 X10^3/uL (4.5-11.0)
--- NOTE | 2021-09-20 17:49 | PM.PN.1 ---
Subjective Subjective Date Patient Seen: 09/20/21 Interval history: This is a brief update note. 75 F admitted with likely lower GI bleeding though does endorse some low dose chronic NSAID use. Bowel movements are improving and h/h is stable. Discussed with surgery whom elects to defer endoscopy evaluation to outpatient setting at this time. Will advance diet, given possible concern for ischemia will monitor overnight after meals and if still improving tomorrow morning can discharge home with plan for outpatient colonoscopy and/or EGD. Exam Vital Signs (past 8 hours): - 09/20/21 13:00 09/20/21 17:00 Temperature 98.0 F 97.9 F Pulse Rate 66 61 Respiratory Rate 18 18 Blood Pressure 147/71 H 157/71 H Pulse Oximetry 96 95 Oxygen Delivery Method Room Air Oxygen Flow Rate 0 Objective Labs Result Diagrams: 09/20/21 13:38 09/20/21 01:35 Labs: Laboratory Results - last 24 hr 09/19/21 09/19/21 09/19/21 20:55 20:55 20:55 WBC 15.2 H RBC 4.82 Hgb 15.4 Hct 44.1 MCV 91.6 MCH 32.1 MCHC 35.0 RDW 13.2 Plt Count 279 Neut % (Auto) Not Reportable Lymph % (Auto) Not Reportable Glenn % (Auto) Not Reportable Eos % (Auto) Not Reportable Baso % (Auto) Not Reportable Neut # (Auto) Lymph # (Auto) Not Reportable Glenn # (Auto) Not Reportable Eos # (Auto) Baso # (Auto) Not Reportable Total Counted 100 Seg Neutrophils % 84.0 H Band Neutrophils % Lymphocytes % (Manual) 7.0 L Atypical Lymphs % Monocytes % (Manual) 2.0 Metamyelocytes % 2.0 H Myelocytes % 5.0 H Neutrophils # (Manual) 19850 H RBC Morphology See below Polychromasia 1+ H Anisocytosis 1+ H Macrocytosis 1+ H Sodium 133 L Potassium 3.8 Chloride 100 Carbon Dioxide 20 L BUN 13 Creatinine 0.74 Estimated GFR > 60 BUN/Creatinine Ratio 17.6 Glucose 157 H Hemoglobin A1c Calcium 9.3 Magnesium Total Bilirubin 0.7 AST 32 ALT 28 Alkaline Phosphatase 112 Total Protein 8.2 Albumin 4.7 Globulin 3.5 Albumin/Globulin Ratio 1.3 Lipase 65 Urine Color Urine Appearance Urine pH Ur Specific Delta Urine Protein Urine Glucose (UA) Urine Ketones Urine Occult Blood Urine Nitrate Urine Bilirubin Ur Bilirubin Confirm Urine Urobilinogen Ur Leukocyte Esterase Urine RBC Urine WBC Ur Squamous Epith Cells Urine Bacteria Hyaline Casts Urine Mucus Ur Culture Indicated? Micro UA Comment Stl C. cayetanensis PCR Stool Rotavirus (PCR) Stool Adenovirus (PCR) Stool Astrovirus (PCR) Stool Cryptosporidium PCR Stl E.coli Shiga Tox PCR St Sh/Enteroin Ecoli PCR Stool E coli O157 PCR Stl Enterotoxigenic E PCR Stool EPEC (PCR) Stl E. histolytica PCR Stool Giardia Lamblia PCR Stool Sapovirus (PCR) Stl P. shigelloides PCR St Y.enterocolitica PCR Stool Vibrio (PCR) Stl Vibrio cholerae PCR Stl Enteroaggr Ecoli PCR Stl Norovirus GI/GII PCR Campylobacter (PCR) C. difficile Tox (PCR) SARS-CoV-2 (PCR) Negative Salmonella (PCR) Blood Type Antibody Screen 09/19/21 09/19/21 09/19/21 20:55 21:10 22:13 WBC RBC Hgb Hct MCV MCH MCHC RDW Plt Count Neut % (Auto) Lymph % (Auto) Glenn % (Auto) Eos % (Auto) Baso % (Auto) Neut # (Auto) Lymph # (Auto) Glenn # (Auto) Eos # (Auto) Baso # (Auto) Total Counted Seg Neutrophils % Band Neutrophils % Lymphocytes % (Manual) Atypical Lymphs % Monocytes % (Manual) Metamyelocytes % Myelocytes % Neutrophils # (Manual) RBC Morphology Polychromasia Anisocytosis Macrocytosis Sodium Potassium Chloride Carbon Dioxide BUN Creatinine Estimated GFR BUN/Creatinine Ratio Glucose Hemoglobin A1c Calcium Magnesium Total Bilirubin AST ALT Alkaline Phosphatase Total Protein Albumin Globulin Albumin/Globulin Ratio Lipase Urine Color Urine Appearance Urine pH Ur Specific Delta Urine Protein Urine Glucose (UA) Urine Ketones Urine Occult Blood Urine Nitrate Urine Bilirubin Ur Bilirubin Confirm Negative Urine Urobilinogen Ur Leukocyte Esterase Urine RBC 0-1/hpf Urine WBC 0-1/hpf Ur Squamous Epith Cells 1-5 /hpf Urine Bacteria None seen Hyaline Casts 1-5/lpf Urine Mucus 1+ H Ur Culture Indicated? Culture not indicate Micro UA Comment * Stl C. cayetanensis PCR Not detected Stool Rotavirus (PCR) Not detected Stool Adenovirus (PCR) Not detected Stool Astrovirus (PCR) Not detected Stool Cryptosporidium PCR Not detected Stl E.coli Shiga Tox PCR Not detected St Sh/Enteroin Ecoli PCR Not detected Stool E coli O157 PCR Not Reportable Stl Enterotoxigenic E PCR Not detected Stool EPEC (PCR) Not detected Stl E. histolytica PCR Not detected Stool Giardia Lamblia PCR Not detected Stool Sapovirus (PCR) Not detected Stl P. shigelloides PCR Not detected St Y.enterocolitica PCR Not detected Stool Vibrio (PCR) Not detected Stl Vibrio cholerae PCR Not detected Stl Enteroaggr Ecoli PCR Not detected Stl Norovirus GI/GII PCR Not detected Campylobacter (PCR) Not detected C. difficile Tox (PCR) Not detected SARS-CoV-2 (PCR) Salmonella (PCR) Not detected Blood Type A Positive Antibody Screen Negative 09/19/21 09/20/21 09/20/21 23:57 01:35 01:35 WBC 12.5 H RBC 4.49 Hgb 14.7 13.9 Hct 42.3 41.0 MCV 91.3 MCH 31.0 MCHC 34.0 RDW 13.3 Plt Count 261 Neut % (Auto) Not Reportable Lymph % (Auto) Not Reportable Glenn % (Auto) Not Reportable Eos % (Auto) Not Reportable Baso % (Auto) Not Reportable Neut # (Auto) Lymph # (Auto) Not Reportable Glenn # (Auto) Not Reportable Eos # (Auto) Baso # (Auto) Not Reportable Total Counted 100 Seg Neutrophils % 77.0 H Band Neutrophils % 2.0 L Lymphocytes % (Manual) 11.0 L Atypical Lymphs % 3.0 H Monocytes % (Manual) 7.0 Metamyelocytes % Myelocytes % Neutrophils # (Manual) 9875 H RBC Morphology Normal morphology Polychromasia Anisocytosis Macrocytosis Sodium 134 L Potassium 4.0 Chloride 106 Carbon Dioxide 18 L BUN 13 Creatinine 0.67 Estimated GFR > 60 BUN/Creatinine Ratio 19.4 Glucose 122 H Hemoglobin A1c Calcium 8.7 Magnesium 2.1 Total Bilirubin AST ALT Alkaline Phosphatase Total Protein Albumin Globulin Albumin/Globulin Ratio Lipase Urine Color Urine Appearance Urine pH Ur Specific Delta Urine Protein Urine Glucose (UA) Urine Ketones Urine Occult Blood Urine Nitrate Urine Bilirubin Ur Bilirubin Confirm Urine Urobilinogen Ur Leukocyte Esterase Urine RBC Urine WBC Ur Squamous Epith Cells Urine Bacteria Hyaline Casts Urine Mucus Ur Culture Indicated? Micro UA Comment Stl C. cayetanensis PCR Stool Rotavirus (PCR) Stool Adenovirus (PCR) Stool Astrovirus (PCR) Stool Cryptosporidium PCR Stl E.coli Shiga Tox PCR St Sh/Enteroin Ecoli PCR Stool E coli O157 PCR Stl Enterotoxigenic E PCR Stool EPEC (PCR) Stl E. histolytica PCR Stool Giardia Lamblia PCR Stool Sapovirus (PCR) Stl P. shigelloides PCR St Y.enterocolitica PCR Stool Vibrio (PCR) Stl Vibrio cholerae PCR Stl Enteroaggr Ecoli PCR Stl Norovirus GI/GII PCR Campylobacter (PCR) C. difficile Tox (PCR) SARS-CoV-2 (PCR) Salmonella (PCR) Blood Type Antibody Screen 09/20/21 09/20/21 09/20/21 01:35 05:10 08:43 WBC 9.5 RBC 4.46 Hgb 14.0 Hct 41.5 MCV 93.0 MCH 31.4 MCHC 33.7 RDW 13.1 Plt Count 251 Neut % (Auto) 66.6 Lymph % (Auto) 21.5 L Glenn % (Auto) 10.9 Eos % (Auto) 0.6 L Baso % (Auto) 0.4 Neut # (Auto) 6300 Lymph # (Auto) 2000 Glenn # (Auto) 1000 H Eos # (Auto) 100 Baso # (Auto) 0 Total Counted Seg Neutrophils % Band Neutrophils % Lymphocytes % (Manual) Atypical Lymphs % Monocytes % (Manual) Metamyelocytes % Myelocytes % Neutrophils # (Manual) RBC Morphology Polychromasia Anisocytosis Macrocytosis Sodium Potassium Chloride Carbon Dioxide BUN Creatinine Estimated GFR BUN/Creatinine Ratio Glucose Hemoglobin A1c 5.4 Calcium Magnesium Total Bilirubin AST ALT Alkaline Phosphatase Total Protein Albumin Globulin Albumin/Globulin Ratio Lipase Urine Color Yellow Urine Appearance Clear Urine pH 7.5 Ur Specific Delta <=1.005 Urine Protein Negative Urine Glucose (UA) Negative Urine Ketones Negative Urine Occult Blood Trace-lysed Urine Nitrate Negative Urine Bilirubin Negative Ur Bilirubin Confirm Urine Urobilinogen 0.2 Ur Leukocyte Esterase Negative Urine RBC None seen Urine WBC None seen Ur Squamous Epith Cells 0-1 /hpf Urine Bacteria None seen Hyaline Casts Urine Mucus Ur Culture Indicated? Cult not indicated Micro UA Comment Stl C. cayetanensis PCR Stool Rotavirus (PCR) Stool Adenovirus (PCR) Stool Astrovirus (PCR) Stool Cryptosporidium PCR Stl E.coli Shiga Tox PCR St Sh/Enteroin Ecoli PCR Stool E coli O157 PCR Stl Enterotoxigenic E PCR Stool EPEC (PCR) Stl E. histolytica PCR Stool Giardia Lamblia PCR Stool Sapovirus (PCR) Stl P. shigelloides PCR St Y.enterocolitica PCR Stool Vibrio (PCR) Stl Vibrio cholerae PCR Stl Enteroaggr Ecoli PCR Stl Norovirus GI/GII PCR Campylobacter (PCR) C. difficile Tox (PCR) SARS-CoV-2 (PCR) Salmonella (PCR) Blood Type Antibody Screen 09/20/21 09/20/21 12:04 13:38 WBC 9.8 RBC 4.22 Hgb 13.2 13.4 Hct 38.9 39.1 MCV 92.7 MCH 31.7 MCHC 34.2 RDW 13.3 Plt Count 229 Neut % (Auto) 71.6 Lymph % (Auto) 16.4 L Glenn % (Auto) 10.6 Eos % (Auto) 0.6 L Baso % (Auto) 0.8 Neut # (Auto) 7000 Lymph # (Auto) 1600 Glenn # (Auto) 1000 H Eos # (Auto) 100 Baso # (Auto) 100 Total Counted Seg Neutrophils % Band Neutrophils % Lymphocytes % (Manual) Atypical Lymphs % Monocytes % (Manual) Metamyelocytes % Myelocytes % Neutrophils # (Manual) RBC Morphology Polychromasia Anisocytosis Macrocytosis Sodium Potassium Chloride Carbon Dioxide BUN Creatinine Estimated GFR BUN/Creatinine Ratio Glucose Hemoglobin A1c Calcium Magnesium Total Bilirubin AST ALT Alkaline Phosphatase Total Protein Albumin Globulin Albumin/Globulin Ratio Lipase Urine Color Urine Appearance Urine pH Ur Specific Delta Urine Protein Urine Glucose (UA) Urine Ketones Urine Occult Blood Urine Nitrate Urine Bilirubin Ur Bilirubin Confirm Urine Urobilinogen Ur Leukocyte Esterase Urine RBC Urine WBC Ur Squamous Epith Cells Urine Bacteria Hyaline Casts Urine Mucus Ur Culture Indicated? Micro UA Comment Stl C. cayetanensis PCR Stool Rotavirus (PCR) Stool Adenovirus (PCR) Stool Astrovirus (PCR) Stool Cryptosporidium PCR Stl E.coli Shiga Tox PCR St Sh/Enteroin Ecoli PCR Stool E coli O157 PCR Stl Enterotoxigenic E PCR Stool EPEC (PCR) Stl E. histolytica PCR Stool Giardia Lamblia PCR Stool Sapovirus (PCR) Stl P. shigelloides PCR St Y.enterocolitica PCR Stool Vibrio (PCR) Stl Vibrio cholerae PCR Stl Enteroaggr Ecoli PCR Stl Norovirus GI/GII PCR Campylobacter (PCR) C. difficile Tox (PCR) SARS-CoV-2 (PCR) Salmonella (PCR) Blood Type Antibody Screen [facility] Medical History Excessive daytime sleepiness Nocturnal hypoxemia Primary insomnia Surgical History History of hip replacement History of hip replacement History of knee replacement History of knee replacement History of tonsillectomy Status post breast lumpectomy Family History (Updated 09/20/21 @ 01:57 by AVELINO Sheldon) Brother Age: 75 Smoker Alcohol abuse Mother Ovarian cancer Social History marital status: household members: spouse Smoking Status: Never smoker alcohol intake: current substance use type: does not use Assessment & Plan Time Spent With Patient Critical Care time: I spent a total of [] minutes of critical care time on this patient's care today; this time is exclusive of procedural time. Quality VTE Deep Vein Thrombosis/Pulmonary Embolism Present on Admission: No
[2021-09-21 01:00] VITALS: BP 160/80; PULSE 66; RESP 17; TEMP 36.1; O2SAT 96
[2021-09-21] MEDS: SODIUM CHLORIDE 0.9% 1,000 ML 150 ML IV (02:05)
--- NOTE | 2021-09-21 03:28 | PC.NURSE ---
Shift Note Patient was alert and orientedx3, not in any distress, vital signs are stable and within acceptable limits, with episode of abdominal pain - due morphine dose given, verbalized relief. Patient was able to get up with minimal assistance, ambulatory to use the toilet. Safety precautions maintained.
[2021-09-21 03:48] VITALS: BP 156/70; PULSE 66; RESP 17; TEMP 36.3; O2SAT 95
[2021-09-21 05:40] LABS: Add Manual Diff / Slide Review NO; Basophils Absolute Auto 0 /uL (0-100); Basophils Percent Auto 0.5 % (0-2); Eosinophils Absolute Auto 100 /uL (0-450); Hematocrit 37.6 % (36-46); Hemoglobin 12.7 g/dL (12.0-16.0); Lymphocytes Absolute Auto 1600 /uL (1100-4500); Lymphocytes Percent Auto 21.7 % (25-40); Mean Corpuscular HGB Conc 33.9 % (30-36); Mean Corpuscular Hemoglobin 31.6 PG (26-34); Mean Corpuscular Volume 93.3 fL (80-100); Monocytes Absolute Auto 700 /uL (0-900); Monocytes Percent Auto 9.9 % (3-14); Neutrophils Absolute Auto 5000 /uL (1500-7000); Neutrophils Percent Auto 66.9 % (50-75); Platelet Count 215 X10^3/uL (150-400); Red Blood Cell Count 4.03 X10^6/uL (4.0-5.2); Red Cell Distribution Width 13.2 % (11.6-14.8); White Blood Cell Count 7.5 X10^3/uL (4.5-11.0)
[2021-09-21 05:59] LABS: Blood Urea Nitrogen 8 mg/dL (7-17); Calcium 8.2 mg/dL (8.4-10.2); Carbon Dioxide 21 mmol/L (22-32); Chloride 109 mmol/L (98-107); Estimated Glomerular Filt Rate > 60 mL/min (>60); Glucose 92 mg/dL (80-110); HEMOLYSIS < 15 (0-50); Magnesium 2.2 mg/dL (1.6-2.3); Potassium 4.3 mmol/L (3.4-5.1); Sodium 137 mmol/L (137-145)
[2021-09-21] MEDS: LEVOTHYROXINE 75 MCG TABLET PO (06:00)
[2021-09-21] MEDS: metroNIDAZOLE 500 MG/100 ML PIGGYBACK 100 MG IV (08:47)
[2021-09-21] MEDS: ACETAMINOPHEN 325 MG TABLET 650 MG PO (08:47)
[2021-09-21] MEDS: dilTIAZem CD 180 MG CAP PO (08:52)
[2021-09-21] MEDS: PANTOPRAZOLE 40 MG VIAL IV (08:53)
[2021-09-21 09:00] VITALS: BP 124/58; PULSE 75; RESP 17; TEMP 36.6; O2SAT 96
[2021-09-21] MEDS: CIPROFLOXACIN 250 MG TABLET 500 MG PO (10:34)
[2021-09-21] MEDS: DULOXETINE 30 MG CAPSULE 60 MG PO (11:15)
[2021-09-21 13:00] VITALS: BP 136/59; PULSE 62; RESP 17; TEMP 36.3; O2SAT 97
[2021-09-21 13:39] LABS: Hematocrit 38.9 % (36-46)
[2021-09-21] MEDS: metroNIDAZOLE 500 MG TABLET PO (14:09)
--- NOTE | 2021-09-21 15:31 | P.DS_ITS ---
History of Present Illness History of Present Illness Date Patient Seen: 09/21/21 Time Patient Seen: 15:32 Chief complaint: passing lots of blood rectally Narrative: AVELINO Ramires: Sandee Salgado is a 75 y.o. female with hypertension, anxiety, morbid obesity, and osteoarthritis presented to the emergency room today with a 1 day history gastroenteritis that started out with diarrhea and then became bloody stool. She states that she had a colonoscopy done by Dr. Hameed and it was clear. States initially started with diarrhea and cramps shortly after arising in the morning of April 21. She states she was up every few minutes had nausea but did not have any vomiting. She also had a headache during that time. Then in the afternoon she started to notice that she had blood in her stool and in the evening she was pretty much only putting out bright blood. She endorses having sweats or chills but no fever, denies chest pain or shortness of breath. CT of the abdomen and pelvis indicated colonic wall thickening of the descending and proximal sigmoid colon consistent with a nonspecific colitis likely infectious or inflammatory also with concern with ischemic colitis. She is afebrile, blood pressure 164/79, heart rate 92, respiratory rate 18, oxygen saturation of 98% on room air she weighs 121.5 kg with a BMI of 43.2. On presentation to the emergency department her white count was 15.2 and a 2nd draw was done and white count was 12.5 she has had a reduction in her hemoglobin and hematocrit initially 14.7 and 42.3 respectively now 13.9 and 41. She does have a left shift of 12,000, also with an abnormal peripheral smear, sodium was 133, bicarb 20, glucose 157, UA is negative for UTI, stool overall OG PCRs are all negative, COVID-19 PCR is negative. Stool H pylori is pending. Discharge Providers Provider Date of admission: 09/20/21 17:41 Discharge Date: 09/21/21 Primary care physician: Vanesa Arechiga PA-C Discharge provider: Sang Carter DO Summary Hospital Course Discharge Diagnosis: 1. Lower GI bleeding with acute blood loss without anemia. 2. Segmental colitis, possible diverticulitis 3. Obesity, BMI 43. 4. HTN, chronic 5. Hypothyroidism, chronic Hospital Course: 75 F admitted with likely lower GI bleeding though does endorse some low dose chronic NSAID use. Her H&H continued to decline slowly with improving bowel movement but with supportive therapy including antibiotics, fluids, and initiation of a PPI her hemoglobin stabilized. The patient's diet was advanced, and though she had some mild abdominal discomfort, she had no further episodes of bleeding and was feeling well and was discharged home. Discussed with surgery whom elected to defer endoscopy evaluation to outpatient setting at this time. Given segmental inflammation, she was treated for a possible infectious cause which could include a diverticulitis. She has multiple antibiotic allergies including to Augmentin, so she was discharged on Cipro and Flagyl for another 7 days. She was also given a prescription for pain medications, and nausea medications as this is her typical side effect of the antibiotics. She was given an oral PPI as well as a cannot completely rule out an upper source at this time, though it is less likely. Her obesity contributes to development of possible diverticulitis, and increases risk of complications as result of her possible infectious process. Time Spent with Patient Time spent: Greater than 30 minutes Exam Vital Signs (past 8 hours): - 09/21/21 09:00 09/21/21 13:00 Temperature 97.8 F 97.3 F L Pulse Rate 75 62 Respiratory Rate 17 17 Blood Pressure 124/58 L 136/59 L Pulse Oximetry 96 97 Oxygen Flow Rate 0 0 Oxygen Delivery Method Room Air Oxygen Flow Rate 0 Narrative Exam Narrative: Gen: Alert, oriented, obese 75 y.o. female, in NAD HEENT: normocephalic, atraumatic, conjunctiva clear, sclera non-icteric, oral mucosa pink and moist Neck: supple, full ROM, no JVD, trachea is midline Resp: Lungs CTA, non-labored breathing CV: RRR, no murmur or rubs Abd: soft, non-tender, non-distended Skin: no lesions or rashes, dry and intact Neuro: Alert and oriented X 4 w/no focal deficits. Speech clear and coherent. Extremities: No edema or joint effusions Objective Labs Result Diagrams: 09/21/21 12:50 09/21/21 04:30 Labs: Laboratory Results - last 24 hr 09/21/21 09/21/21 09/21/21 04:30 04:30 12:50 WBC 7.5 RBC 4.03 Hgb 12.7 13.0 Hct 37.6 38.9 MCV 93.3 MCH 31.6 MCHC 33.9 RDW 13.2 Plt Count 215 Neut % (Auto) 66.9 Lymph % (Auto) 21.7 L [place] % (Auto) 9.9 Eos % (Auto) 1.0 L Baso % (Auto) 0.5 Neut # (Auto) 5000 Lymph # (Auto) 1600 [place] # (Auto) 700 Eos # (Auto) 100 Baso # (Auto) 0 Sodium 137 Potassium 4.3 Chloride 109 H Carbon Dioxide 21 L BUN 8 Creatinine 0.57 Estimated GFR > 60 BUN/Creatinine Ratio 14.0 Glucose 92 Calcium 8.2 L Magnesium 2.2 PFSH Medical History Excessive daytime sleepiness Nocturnal hypoxemia Primary insomnia Surgical History History of hip replacement History of hip replacement History of knee replacement History of knee replacement History of tonsillectomy Status post breast lumpectomy Family History (Updated 09/20/21 @ 01:57 by AVELINO Sheldon) Brother Age: 75 Smoker Alcohol abuse Mother Ovarian cancer Social History marital status: household members: spouse Smoking Status: Never smoker alcohol intake: current substance use type: does not use Discharge Plan Discharge Plan Patient Disposition: Home Provider Discharge Comment: You were admitted to the hospital with lower GI / colon bleeding. This stopped on its own. The cause is not entirely known at this point, surgery recommended outpatient colonoscopy. Being treated with antibiotics for possible diverticulitis. Discharge orders & Medications Prescriptions: New hydromorphone 2 mg tablet 2 mg PO Q6H PRN (Reason: pain) 4 Days Qty: 10 0RF pantoprazole 20 mg tablet,delayed release (DR/EC) 20 mg PO DAILY 30 Days Qty: 30 0RF ondansetron HCl 4 mg tablet 4 mg PO Q8H PRN (Reason: nausea and vomiting) 14 Days Qty: 30 0RF ciprofloxacin HCl 500 mg tablet 500 mg PO BID 7 Days Qty: 14 0RF metronidazole 500 mg tablet 500 mg PO Q8H 7 Days Qty: 21 0RF Continued aspirin 81 MG tablet,delayed release (DR/EC) 81 mg PO BEDTIME Qty: 0 cholecalciferol (vitamin D3) 125 mcg (5,000 unit) Capsule 125 mcg PO DAILY duloxetine [Cymbalta] 60 mg Capsule,Delayed Release(Dr/Ec) 60 mg PO DAILY fluticasone furoate 27.5 mcg/actuation spray,suspension 2 spray NASAL DAILY PRN (Reason: Allergy Symptoms) diltiazem HCl 180 mg capsule,extended release 24hr 360 mg PO DAILY metoprolol succinate [Toprol XL] 50 mg tablet extended release 24 hr 50 mg PO BEDTIME levothyroxine 75 mcg capsule 75 mcg PO DAILY Follow up/Referrals: Vanesa Arechiga PA-C [Primary Care Provider] - Ramón Rehman MD [Physician] - 2 Weeks (For lower GI bleeding, admitted to hospitalist. Evaluation deferred to outpatient) Diet/Activity/Treatments Diet: Diet as Tolerated Diet comment: As tolerated Activity: As tolerated Discharge Data Primary Care Provider: Vanesa Arechiga Quality VTE Deep Vein Thrombosis/Pulmonary Embolism Present on Admission: No
--- NOTE | 2021-09-21 17:17 | PC.NURSE ---
Discharge note: Patient discharged per MD instructions. Discussed importance of F/U with Ori in 2 weeks, signs of worsening symptoms, and new medication/adherence. Verbalized understanding of discharge instructions. Home via private vehicle with Rx on hand, accompanied by daughter in law.
== END 2021-09-21 17:00 | disposition home or self-care (01) | DRG 386 ==
LOC: ED 09-20 00:45 → AC 09-20 01:18
PROVIDERS: Internal Medicine; Admitting Provider Nurse Practitioner Family; Emergency Provider Emergency Medicine; PCP Physician Assistant; Referring Provider Nurse Practitioner Family; Visit Provider Nurse Practitioner Family
DX: K50.111 Crohn's disease of large intestine with rectal bleeding (principal); Z68.41 Body mass index [BMI] 40.0-44.9, adult; K57.32 Diverticulitis of large intestine without perforation or abscess without bleeding; E66.01 Morbid (severe) obesity due to excess calories; I10 Essential (primary) hypertension; E03.9 Hypothyroidism, unspecified; F41.9 Anxiety disorder, unspecified; Z20.822 Contact with and (suspected) exposure to COVID-19
CPT/HCPCS: 36415; 74177; 80048; 80053; 81001; 81003; 81015; 82272; 83036; 83690; 83735; 85007; 85014; 85018; 85025; 86850; 86900; 86901; 87086; 87507; 87635; 96361; 96374; 96375; 99284; C9803; G0378; C9113; J2270; J2405; Q9967

== ENCOUNTER → 2022-02-05 14:31 | Outpatient (CLI) | payer MEDICARE, OTHER, SELFPAY ==
[2021-09-20 01:19] VITALS: BMI 43.2
--- NOTE | 2022-02-05 14:37 | DI.MG.S_ITS ---
BILATERAL DIGITAL SCREENING MAMMOGRAM 3D/2D WITH CAD: 02/05/2022 CLINICAL: Routine screening. Breast cancer. Comparison is made to exams dated: 08/08/2020 mammogram, 04/04/2018 mammogram, and 12/10/2016 mammogram - [facility]. There are scattered areas of fibroglandular density in both breasts (category b / 25%-50% glandular tissue). Current study was also evaluated with a Computer Aided Detection (CAD) system. There are benign post operative findings in the left breast. No significant masses, calcifications, or other findings are seen in either breast. There has been no significant interval change. IMPRESSION: BENIGN There is no mammographic evidence of malignancy. A 1 year screening mammogram is recommended. This exam was interpreted at Station ID: [id number]. NOTE: For mammograms, a report in lay terms will be sent to the patient. Approximately 15% of breast malignancies will not be visualized mammographically. In the management of a palpable breast mass, a negative mammogram must not discourage biopsy of a clinically suspicious lesion. Electronically Signed By: Candelario banerjee/iain:02/05/2022 17:36:04 letter sent: Normal Exam ACR BI-RADS Category 2: Benign Finding(s) [id number]
== END ==
PROVIDERS: PCP Physician Assistant; Referring Provider Physician Assistant
DX: Z12.31 Encounter for screening mammogram for malignant neoplasm of breast (principal); Z80.3 Family history of malignant neoplasm of breast
CPT/HCPCS: 77063; 77067

== ENCOUNTER 2022-05-28 14:35 | Emergency (ER) | payer MEDICARE, OTHER, SELFPAY ==
[2021-09-20 01:19] VITALS: BMI 43.2
[2022-05-28 14:54] VITALS: BP 138/101; PULSE 96; RESP 18; TEMP 36.8; O2SAT 96; BMI 43.5
--- NOTE | 2022-05-28 14:59 | DI.RAD.S_ITS ---
PROCEDURE: XR TOE LT MIN 2V INDICATIONS: Fall with bruising and swelling to right wrist TECHNIQUE: 3 views of the 3rd toe(s) acquired. COMPARISON: None. FINDINGS: Bones: Acute fracture through dorsal aspect of 3rd distal phalangeal base is seen with dorsally displaced fractured fragment. Fracture line is seen extending 3rd distal interphalangeal joint space. No other fracture or dislocation is seen. No suspicious bony lesions. Soft tissues: No suspicious soft tissue densities. IMPRESSION: Acute 3rd distal phalangeal base fracture as above. Dictated by: Noel Rodriguez M.D. on 05/28/2022 at 15:41 Approved by: Noel Rodriguez M.D. on 05/28/2022 at 15:43
--- NOTE | 2022-05-28 14:59 | DI.RAD.S_ITS ---
PROCEDURE: XR WRIST RT MIN 3V INDICATIONS: Fall with bruising and swelling to right wrist TECHNIQUE: 4 views of the wrist were acquired. COMPARISON: None. FINDINGS: Bones: Impacted distal radial fracture is seen. Ulnar styloid tip fracture is also noted. Osteoarthritic changes are noted throughout wrist joints most notably at 1st CMC joint. No suspicious bony lesions. Scaphoid view: No definite scaphoid fracture. No evidence of avascular necrosis. Soft tissues: No suspicious soft tissue calcifications. Diffuse soft tissue swelling around wrist joint is noted. IMPRESSION: Acute impacted distal radial fracture and ulnar styloid tip fracture. Osteoarthritis throughout right wrist joints. Diffuse wrist soft tissue swelling. Dictated by: Noel Rodriguez M.D. on 05/28/2022 at 15:43 Approved by: Noel Rodriguez M.D. on 05/28/2022 at 15:51
--- NOTE | 2022-05-28 15:00 | ED_ITS ---
HPI - Fall General Chief Complaint: Fall Stated Complaint: GLF last night R wrist discoloration/pain Time Seen by Provider: 05/28/22 14:58 Source: patient Mode of arrival: Ambulatory History of Present Illness HPI Narrative: 76-year-old female nonsmoker presents with her in the chief complaint of pain and bruising of her right wrist after a ground level fall suffered yesterday. She states that she was in her normal state of health and denies any prodromal symptoms such as dizziness, weakness or lightheadedness and she merely tripped on something on the ground and fell onto an outstretched wrist. She denies any head, neck or back pain. She denies any shoulder or elbow pain her right side and complains of some bruising and pain of her wrist. She denies any injury to her hand, denies any numbness, tingling or weakness. She has pain with attempts at range of motion of the wrist and improvement with rest, additionally she has got some pain in the middle toe of her left foot with some bruising. Related Data Home Medications Medication Instructions Recorded Confirmed aspirin 81 mg tablet,delayed 81 mg PO BEDTIME ##0 12/13/16 09/20/21 release diltiazem HCl 180 mg 360 mg PO DAILY 11/14/17 09/20/21 capsule,extended release 24 hr fluticasone furoate 27.5 2 spray intranasal DAILY PRN 11/14/17 09/20/21 mcg/actuation nasal Allergy Symptoms spray,suspension levothyroxine 75 mcg capsule 75 mcg PO DAILY 11/14/17 09/20/21 metoprolol succinate 50 mg 50 mg PO BEDTIME 11/14/17 09/20/21 tablet,extended release 24 hr (Toprol XL) cholecalciferol (vitamin D3) 125 125 mcg PO DAILY 09/20/21 09/20/21 mcg (5,000 unit) capsule duloxetine 60 mg capsule,delayed 60 mg PO DAILY 09/20/21 09/20/21 release (Cymbalta) Previous Rx's Medication Instructions Recorded hydrocodone 5 mg-acetaminophen 325 1 tab PO Q4-6H PRN pain #10 tabs 05/28/22 mg tablet ondansetron 4 mg disintegrating 4 mg PO TID-QID PRN nausea and 05/28/22 tablet vomiting #10 tabs Allergies Allergy/AdvReac Type Severity Reaction Status Date / Time adhesive tape [ADHESIVE TAPE] Allergy Severe FLARE OF Verified 05/28/22 14:54 ECZEMA nickel [NICKEL] Allergy Severe FLARE OF Verified 05/28/22 14:54 ECZEMA iodine [IODINE] Allergy Mild SKIN RASH Verified 05/28/22 14:54 moxifloxacin [MOXIFLOXACIN] Allergy Mild ITCHING Verified 05/28/22 14:54 amoxicillin [From AUGMENTIN] AdvReac Severe VOMITING Verified 05/28/22 14:54 clavulanic acid AdvReac Severe VIOLENTLY Verified 05/28/22 14:54 [CLAVULANIC ACID] ILL oxycodone [OXYCODONE] AdvReac Severe DELAYED Verified 05/28/22 14:54 DIFFICULTY WITH GAIT Sulfa (Sulfonamide AdvReac Severe NAUSEA, Verified 05/28/22 14:54 Antibiotics) VOMITING [SULFA (SULFONAMIDE ANTIBIOTICS)] levofloxacin [From LEVAQUIN] AdvReac Intermediate VOMITING Verified 05/28/22 14:54 lisinopril [LISINOPRIL] AdvReac Mild cough Verified 05/28/22 14:54 tramadol [TRAMADOL] AdvReac Mild DIZZINESS Verified 02/26/20 11:22 ADHESIVE TAPE Allergy Mild SKIN RASH Uncoded 11/14/17 14:25 Review of Systems Review of Systems Narrative: GENERAL: Denies chills, fatigue, malaise, fever, sweats. HEENT: Denies sinus pain, ear pain, sore throat, difficulty swallowing, dizziness. RESPIRATORY: Denies dyspnea, cough, wheezing, hemoptysis, sputum. CARDIOVASCULAR: Denies chest pain, palpitations, orthopnea, edema, GASTROINTESTINAL: Denies nausea, vomiting, abdominal pain, diarrhea, constipation, melena. : Denies dysuria, frequency, incontinence, hematuria, urinary retention. MUSCULOSKELETAL: See HPI SKIN: Denies rash, skin lesions, or other NEUROLOGIC: See HPI PSYCHIATRIC: No concerning psychosocial issues. 12 point review of systems is negative except for those stated above Patient History Medical History (Updated 05/29/22 @ 09:11 by Satnam Alvares DO) Excessive daytime sleepiness Nocturnal hypoxemia Primary insomnia Surgical History History of hip replacement History of hip replacement History of knee replacement History of knee replacement History of tonsillectomy Status post breast lumpectomy Family History Brother Age: 75 Smoker Alcohol abuse Mother Ovarian cancer Social History marital status: household members: spouse Smoking Status: Never smoker alcohol intake: current substance use type: does not use Smoking Status: Never smoker alcohol intake frequency: 3 or more drinks per day Alcohol type: hard liquor Substance Use Type: does not use Exam Narrative Exam Narrative: GENERAL: [76] year old patient appears stated age. Well-developed patient, in mild distress. HEAD: Atraumatic. Normocephalic. EYES: Pupils equal round and reactive. Extraocular motions intact. No scleral icterus. No injection or drainage. ENT: Nose without bleeding, purulent drainage. Throat without erythema, tonsillar hypertrophy or exudate. Airway patent. NECK: Trachea midline. Non tender CARDIOVASCULAR: Regular rate and rhythm without murmurs, gallops, or rubs. RESPIRATORY: Clear to auscultation. Breath sounds equal bilaterally. No wheezes, rales, or rhonchi. GASTROINTESTINAL: Abdomen soft, non-tender, nondistended. EXTREMITIES: Pain, ecchymosis and some swelling overlying the right wrist. This is closed, neurovascularly intact. Full range of motion of fingers, sensation intact. No pain in anatomic snuffbox or with axial loading of the thumb. No pain in elbow or shoulder. She does have some bruising and pain of the left middle toe BACK: Nontender without deformity or crepitance. No flank tenderness. NEURO: AOx3. SKIN: No rash or erythema of visible areas Initial Vital Signs Initial Vital Signs: Vital Signs Temperature 98.2 F 05/28/22 14:54 Pulse Rate 96 H 05/28/22 14:54 Respiratory Rate 18 05/28/22 14:54 Blood Pressure 138/101 H 05/28/22 14:54 Pulse Oximetry 96 05/28/22 14:54 Oxygen Delivery Method 05/28/22 14:54 Procedures Orthopedic Splinting/Casting Injury #1: Side: right Upper Extremity Injury Location: wrist Upper Extremity Immobilizer: sling/shoulder immobilizer and sugar tong splint Post splinting neuro exam: intact Post splinting vascular exam: intact Placed by: Nursing Course Orders Ordered: ED Orders 05/28/22 14:59 XR toe LT min 2V Stat XR wrist RT min 3V Stat Consultations Consultation #1: Discussed case with on-call ortho, Dr. Stein, he has reviewed imaging and agrees with splinting, agrees that attempts at reduction at the bedside are unlikely to have any improved alignment. Discuss the possibility of abnormality with scaphoid, suggest no additional imaging needed at this point, they will evaluate with repeat imaging in the office and make a determination at that point. Vital Signs Vital signs: Vital Signs - 8 hr 05/28/22 14:54 Temperature 98.2 F Pulse Rate 96 H Respiratory Rate 18 Blood Pressure 138/101 H Pulse Oximetry 96 Oxygen Delivery Method Room Air MDM - Fall Imaging Data Extremity x-ray #1: Radiologist's Impression: Allergy/Adv: adhesive tape, nickel, iodine, moxifloxacin, amoxicillin, clavulanic acid, oxycodone, Sulfa (Sulfonamide Antibiotics), levofloxacin, lisinopril, tramadol, [ADHESIVE TAPE] (More??) Close Wrist X-Ray (Signed) Noel Rodriguez - 05/28/22 Toe X-Ray (Signed) Noel Rodriguez - 05/28/22 Mammogram Screening (Signed) Poncho Peacen - 02/05/22 Telemetry Strips 09/20/21 Abdomen/Pelvis CT (Signed) Issa Augustine - 09/19/21 Mammogram Screening (Signed) Gary Pool - 08/08/20 PFT Result 08/05/20 Echocardiogram Ultrasound (Signed) Edyta Herron - 07/25/[address] (Signed) Zak Sommers - 06/27/20 Chest X-Ray (Signed) Noel Rodriguez - 06/20/20 Ribs X-Ray (Signed) Noel Rodriguez - 02/26/20 Thoracic Spine X-Ray (Signed) Ankita Zacarias - 11/26/19 Lumbar Spine X-Ray (Signed) Ankita Zacarias - 11/26/19 Cervical Spine X-Ray (Signed) Ankita Zacarias - 11/26/19 Finger X-Ray (Signed) Marilia De León - 04/15/19 Mammogram Screening (Signed) Thelma Gonzales - 04/04/[address] (Signed) Idalia Reynolds - 02/25/[address] [place] [address] XRay Report Signed Patient: Sandee Salgado MR#: [id number] : 1945 Acct:[id number] Age/Sex: 76 / F Date of Service: 05/28/22 Loc: ED Accession Number: [id number] ?? Procedure: XR toe LT min 2V Ordering Provider: Satnam Alvares D.O. PROCEDURE:? XR TOE LT MIN 2V ? INDICATIONS:? Fall with bruising and swelling to right wrist ? TECHNIQUE:? 3 views of the 3rd toe(s) acquired.? ? COMPARISON:? None. ? FINDINGS:? ? Bones:? Acute fracture through dorsal aspect of 3rd distal phalangeal base is seen with dorsally displaced fractured fragment.? Fracture line is seen extending 3rd distal interphalangeal joint space.? No other fracture or dislocation is seen.? No suspicious bony lesions.? ? Soft tissues:? No suspicious soft tissue densities.? ? IMPRESSION:? Acute 3rd distal phalangeal base fracture as above. ? ? Dictated by: Noel Rodriguez M.D. on 05/28/2022 at 15:41 ? ? Approved by: Noel Rodriguez M.D. on 05/28/2022 at 15:43 ? Extremity x-ray #2: Radiologist's Impression: [address] [address] XRay Report Signed Patient: Sandee Salgado MR#: [id number] : 1945 Acct:[id number] Age/Sex: 76 / F Date of Service: 05/28/22 Loc: ED Accession Number: [id number] ?? Procedure: XR wrist RT min 3V Ordering Provider: Satnam Alvares D.O. PROCEDURE:? XR WRIST RT MIN 3V ? INDICATIONS: Fall with bruising and swelling to right wrist ? TECHNIQUE:? 4 views of the wrist were acquired.? ? COMPARISON:? None. ? FINDINGS:? ? Bones:? Impacted distal radial fracture is seen.? Ulnar styloid tip fracture is also noted.? Osteoarthritic changes are noted throughout wrist joints most notably at 1st CMC joint.? No suspicious bony lesions.? ? Scaphoid view:? No definite scaphoid fracture.? No evidence of avascular necrosis. ? Soft tissues:? No suspicious soft tissue calcifications.? Diffuse soft tissue swelling around wrist joint is noted.? ? IMPRESSION:? Acute impacted distal radial fracture and ulnar styloid tip fracture.? Osteoarthritis throughout right wrist joints.? Diffuse wrist soft tissue swelling.? ? ? Dictated by: Noel Rodriguez M.D. on 05/28/2022 at 15:43 ? ? Approved by: Noel Rodriguez M.D. on 05/28/2022 at 15:51 ? MDM Narrative Medical decision making narrative: CC: 76-year-old female with ground level fall resulting in pain to right wrist and left middle toe Complicating co-morbidities: Age, use of aspirin Data collected from: Patient Medical records reviewed: Prior ED notes evaluated Differential considered, but not limited to: Sprain, dislocation, fracture Exam documented above, pertinent findings include: Pain, swelling and ecchymosis at right wrist, neurovascularly intact and closed, no pain an bernardo tomic snuffbox or with axial loading of thumb, scaphoid injury unlikely. Left middle toe pain, swelling and ecchymosis Imaging studies independently reviewed: Impacted right distal radius without s ignificant malalignment or displacement, left middle toe fracture Consultations: Discussed with on-call ortho, please see details above Treatments: Splint and sling Re-evaluations: Neurovascularly intact Discussion: Patient with distal radius fracture, closed and neurovascularly intact, no attempt at reduction after discussion with ortho, splint placed, discussed importance of close follow-up Disposition: see below, along with detailed discharge instructions that have been reviewed with patient as well as indications for ED re-evaluation and additional outpatient follow up Discharge Plan Departure Patient Disposition: Home Clinical Impression: Distal radial fracture, Fracture of toe Instructions: DI for Wrist Fracture, DI for Toe Fracture Activity Restrictions/Additional Instructions: *You have been diagnosed with [right distal radius fracture, as we discussed there is the possibility of some involvement of your scaphoid bone but per my discussion with orthopedist they recommended this splinting and will re-evaluate when you see them in the office] *What to do: *Please continue to take your regular medications as directed. [ x] New medication prescriptions sent to your pharmacy: [ [facility]] [ ] New medication written as a paper prescription [x] Tylenol and occasional Motrin for pain *Please follow up with [Sarita ] of [facility] in 2-3 days, call for an appointment. Let them know you were seen in the Emergency Department and that we ask that you be seen in follow up. We will electronically transmit a record of today's note if your PCP is in our system *Return to Emergency Department if you should have any new, worsening or concerning symptoms, such as [worsening pain, significant swelling, cold extremities, numbness, tingling, weakness or other bothersome symptoms Splint Care: Keep splint clean and dry. Elevated affected body part to decrease swelling. OK to use ice pack on the affected body part. Use for 15-20 minutes each time, for 5-6x per day. If you develop worsening pain, numbness, tingling, discoloration of the affected body part, loosen the splint by loosening the MICHAEL wrap, and either see your doctor for an urgent re-assessment, or return to the Emergency Department. Return to the Emergency Department for any new or worsening symptoms. You have been prescribed a short course of narcotic medications. These are potentially dangerous and addictive medications that should be used carefully. While on these medications you cannot drive or operate heavy machinery. Additionally, you cannot sign legal documents or perform any duties such as this. 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 Please understand that we cannot provide further refills of narcotics or controlled substances through the ED and your pain management will need to be through your Primary Care Provider Prescriptions: New hydrocodone-acetaminophen 5-325 mg tablet 1 tab PO Q4-6H PRN (Reason: pain) Qty: 10 0RF ondansetron 4 mg tablet,disintegrating 4 mg PO TID-QID PRN (Reason: nausea and vomiting) Qty: 10 0RF No Action aspirin 81 MG tablet,delayed release (DR/EC) 81 mg PO BEDTIME Qty: 0 cholecalciferol (vitamin D3) 125 mcg (5,000 unit) Capsule 125 mcg PO DAILY duloxetine [Cymbalta] 60 mg Capsule,Delayed Release(Dr/Ec) 60 mg PO DAILY fluticasone furoate 27.5 mcg/actuation spray,suspension 2 spray NASAL DAILY PRN (Reason: Allergy Symptoms) diltiazem HCl 180 mg capsule,extended release 24hr 360 mg PO DAILY metoprolol succinate [Toprol XL] 50 mg tablet extended release 24 hr 50 mg PO BEDTIME levothyroxine 75 mcg capsule 75 mcg PO DAILY Referrals: Vanesa Arechiga PA-C [Primary Care Provider] - Charlene Stein MD [Physician] - Stand Alone Forms: Patient Portal/API
== END 2022-05-28 16:08 | disposition home or self-care (01) ==
PROVIDERS: Emergency Provider Emergency Medicine; PCP Physician Assistant
DX: S52.501A Unspecified fracture of the lower end of right radius, initial encounter for closed fracture (principal); S92.532A Displaced fracture of distal phalanx of left lesser toe(s), initial encounter for closed fracture; W18.30XA Fall on same level, unspecified, initial encounter
CPT/HCPCS: 29125; 73110; 73660; 99283

== ENCOUNTER → 2022-12-21 15:10 | Outpatient (CLI) | payer MEDICARE, OTHER, SELFPAY ==
[2021-09-20 01:19] VITALS: BMI 43.2
[2022-12-21 16:23] LABS: NT-proBNP (BNP-Adult 18+) 160 pg/mL (<450)
== END ==
PROVIDERS: PCP Physician Assistant; Referring Provider Internal Medicine Cardiovascular Disease; Visit Provider Internal Medicine Cardiovascular Disease
DX: R06.02 Shortness of breath (principal); I10 Essential (primary) hypertension
CPT/HCPCS: 36415; 83880

== ENCOUNTER → 2022-12-31 14:18 | Outpatient (CLI) | payer MEDICARE, OTHER, SELFPAY ==
[2021-09-20 01:19] VITALS: BMI 43.2
--- NOTE | 2023-01-01 22:11 | DI.NM.S_ITS ---
DATE OF SERVICE: 12/31/2022 INDICATIONS: Shortness of breath, hypertension. RADIOPHARMACEUTICAL: 26.5 mCi technetium-99m Myoview IV was injected at stress and 24.0 mCi technetium-99m Myoview IV was injected at rest. CARDIAC STRESS: Patient underwent IV Lexiscan perfusion study under the supervision of an attending staff as per standard Lexiscan protocol. She remained hemodynamically stable. Resting blood pressure 144/90 mmHg. Baseline rhythm was sinus with nonspecific ST depression in inferior leads and leads V3 to V6. During stress, no new convincing ischemic changes or significant arrhythmias seen. No chest pain. RAW DATA: Significant breast shadow seen. There is increased subdiaphragmatic activity. GATED STUDY: Stress LV ejection fraction 71% without any significant wall motion abnormalities. Resting end-diastolic volume 78 mL. TID ratio 1.6. However, visually I do not see any significant transient ischemic dilatation. It is a pharmacological perfusion study. Lung/heart ratio 0.28, which is within normal limits. MYOCARDIAL PERFUSION SCAN: This patient does not have any stress prone images. Stress supine and resting supine images were compared to each other. There is a normal myocardial perfusion. Summed rest score and summed stress supine score zero with difference zero. CONCLUSION: This is a normal myocardial perfusion study. Preserved left ventricular function. Visually no significant transient ischemic dilatation. Summed rest score and stress score zero. Overall, this is a low-risk myocardial perfusion scan. The patient had an exercise perfusion study on July 02, 2022. At that time patient had normal myocardial perfusion as well. Overall low-risk study. Sandee Salgado - GUILLERMO/pennie/ doc#: [id number]/job#: [id number] dd: 01/01/2023 16:31:00 dt: 01/01/2023 21:54:00 DICTATING MD/COPIES TO: Feng Pina MD COPIES MNE: PRECIOUS;
== END ==
PROVIDERS: PCP Physician Assistant; Referring Provider Internal Medicine Cardiovascular Disease; Visit Provider Internal Medicine Cardiovascular Disease
DX: R06.02 Shortness of breath (principal); I10 Essential (primary) hypertension
CPT/HCPCS: 78452; 93017; A9502; J2785

== ENCOUNTER → 2023-02-18 16:15 | Outpatient (CLI) | payer MEDICARE, OTHER, SELFPAY ==
[2021-09-20 01:19] VITALS: BMI 43.2
--- NOTE | 2023-02-18 | DI.RAD.S_ITS ---
PROCEDURE: XR LUMBAR SPINE 2-3V INDICATIONS: BACK PAIN TECHNIQUE: 3 views of the lumbar spine were acquired. COMPARISON: [facility], , XR LUMBAR SPINE 2-3V, 11/26/2019, 14:44. FINDINGS: Bones: 5 [id number] vertebrae are present. Mild dextroscoliosis due to asymmetric left-sided disc height loss at L2-3 and L3-4. AP alignment remains normal. Multilevel moderately severe disc height loss at several levels with progression of endplate osteophytes from L3 through L5. No acute fractures. No suspicious bone lesions. No vertebral body compression fractures. No suspicious bony lesions. Soft tissues: Overlying bowel gas pattern is normal. No suspicious soft tissue calcifications. Atherosclerotic calcification. IMPRESSION: 1. Progression of endplate degeneration in the lower lumbar spine and disc height loss at most levels. 2. Progression of lumbar degenerative dextroscoliosis. Dictated by: Antoinette Hamilton M.D. on 02/19/2023 at 0:45 Approved by: Antoinette Hamilton M.D. on 02/19/2023 at 0:47
== END ==
PROVIDERS: PCP Physician Assistant; Referring Provider Physician Assistant; Visit Provider Physician Assistant
DX: M62.830 Muscle spasm of back (principal); M54.50 Low back pain, unspecified; G89.29 Other chronic pain; M41.9 Scoliosis, unspecified
CPT/HCPCS: 72100

== ENCOUNTER 2023-04-24 10:29 | Outpatient (CLI) | payer MEDICARE, OTHER, SELFPAY ==
[2021-09-20 01:19] VITALS: BMI 43.2
[2023-04-24] VITALS (8 sets, daily range): BP systolic 155–209; BP diastolic 66–112; PULSE 67–79; RESP 14–18; TEMP 36.7; O2SAT 95–98
--- NOTE | 2023-04-24 11:00 | DI.RAD.S_ITS ---
PROCEDURE: PAIN L/S FACET INJ/BLK 1ST CLARENCE INDICATIONS: SPONDYLOSIS COMPARISON: [facility], CR, XR LUMBAR SPINE 2-3V, 02/18/2023, 17:28. FINDINGS: Fluoroscopic spot filming was performed to verify placement of spinal needles at the L3, L4 and L5 bilaterally level(s), as labeled on the films. Appropriate location(s) of the needle tip(s) was confirmed by injection of iodinated contrast. IMPRESSION: Fluoroscopy for pain management. Dictated by: Carrie Zacarias M.D. on 04/24/2023 at 16:22 Approved by: Carrie Zacarias M.D. on 04/24/2023 at 16:32
[2023-04-24] MEDS: MIDAZOLAM 2 MG/2 ML VIAL IV (11:08)
[2023-04-24] MEDS: iopamidoL 15 ML VIAL 3 ML INJ (11:10)
[2023-04-24] MEDS: BUPIVACAINE 0.5% (PF) 10 ML VIAL 5 ML INJ (11:10)
--- NOTE | 2023-04-24 11:28 | P.PCN_ITS ---
Date/Time/Diagnoses Date of procedure: 04/24/23 Time of procedure: 11:00 Procedure Notes Physician: Misbah Bender Total Fluoroscopy time (seconds): 28 Total sedation minutes: 15 Procedure in detail & Post-procedure care: Bilateral L3, 4, 5 Lumbar Medial Branch Blocks Indications: Joselyn is presenting for treatment of lumbar spondylosis with low back pain. She has a history of allergy to topical iodine however she was at IV contrast in the past without difficulty. Preoperative diagnosis: Lumbar spondylosis Postoperative diagnosis: Same Pre-procedure History: Patient demonstrates today moderate to severe non- radicular back pain without neurologic deficit aggravated by hyperextension yes Back pain greater than leg pain? yes Patient today has tenderness over the suspected joint(s) yes History of post-traumatic injury? no Hypertrophic arthropathy yes Back pain associated with suspected motion segment instability, hypermobility or pseudoarthrosis no Focused Examination: Ax3 Mood and affect are normal Vital Signs: VSS ASA: 3 Consent: Following review of allergies and potential side effects/complications, including, but not necessarily limited to, infection, allergic reaction, local tissue breakdown, stroke, temporary or permanent nerve injury, paralysis, and possible , the patient indicated that they understood and agreed to proceed.? An informed consent document was signed by the patient, witnessed by a nurse and placed in the patient's chart.? Additionally, other treatment options including medications and physical therapy were reviewed with the patient. All questions were answered. Site was then marked. Anesthesia: After review of previous anesthetic history and IV conscious sedation, the patient was deemed safe to proceed with today's procedure with IV conscious sedation. IV sedation was accomplished with midazolam 2 mg administered by the RN after order by Dr. Bender. Sedation was titrated to patient comfort during the course of the procedure. Patient remained responsive to all verbal commands. Position: Prone Monitoring: NIBP, Pulse oximetry, 3 lead EKG Needle used: 22 ga 3.5 inch spinal needle (recommend 5 inch for future procedures) Contrast: Isovue 300M Injectate: 0.5% bupivacaine 1 mL per site Procedure: The patient was brought into the procedure room and positioned into the prone position. Skin was prepped with a Chloraprep solution, allowed to air dry, and then draped in sterile fashion.? The right L4-5 and L5-S1 facet joints were visually identified with fluoroscopy. Lidocaine 1% was used to anesthetize the skin over each target destination with a 25ga needle. A 22 ga, 3.5 inch spinal needle was advanced to the location of the medial branch at the junction of the superior articular process and the transverse process at L4,5 and the base of the SAP of the sacrum using intermittent fluoroscopy in the AP view. Isovue 300M contrast 0.2ml was injected at each level outlining the medial borders for each level and the base of the SAP of the sacrum in the AP and lateral views. There was no evidence of vascular or intrathecal uptake. The above injectate was slowly injected at each target destination. The left L4-5 and L5-S1 facet joints were visually identified with fluoroscopy. Lidocaine 1% was used to anesthetize the skin over each target destination with a 25ga needle. A 22 ga, 3.5 inch spinal needle was advanced to the location of the medial branch at the junction of the superior articular process and the transverse process at L4,5 and the base of the SAP of the sacrum using intermittent fluoroscopy in the AP view. Isovue 300M contrast 0.2ml was injected at each level outlining the medial borders for each level and the base of the SAP of the sacrum in the AP and lateral views. There was no evidence of vascular or intrathecal uptake. The above injectate was slowly injected at each target de stination. At the end of the procedure the needles were withdrawn and Band-Aids were applied for a dressing. Post Procedure: Patient was taken to the recovery and monitored. The patient was provided a Pain Log to continue to record the patient's response to the target- specific procedure prior to the patient's follow-up visit with the referring physician. Patient was stable upon discharge. Detailed post procedure instructions were provided. Patient was asked to call in the event of worsening pain, fever, weakness, numbness or bladder or bowel incontinence. Based on the medial branches blocked today, if the patient meets insurance criteria for radiofrequency, the treatment should result in the denervation of the bilateral L4-5 and L5-S1 facet joint nerves. We would expect to denervate a total of 4 facets during the radiofrequency ablation.
== END 2023-04-24 11:49 | disposition home or self-care (01) ==
LOC: RAD 10:30
PROVIDERS: PCP Physician Assistant; Referring Provider Anesthesiology; Visit Provider Anesthesiology
DX: M47.816 Spondylosis without myelopathy or radiculopathy, lumbar region (principal)
CPT/HCPCS: 64493; 64494; 99152; J2250

== ENCOUNTER 2023-05-22 14:03 | Outpatient (CLI) | payer MEDICARE, OTHER, SELFPAY ==
[2021-09-20 01:19] VITALS: BMI 43.2
[2023-05-22] VITALS (8 sets, daily range): BP systolic 143–196; BP diastolic 66–94; PULSE 74–91; RESP 14–18; TEMP 35.9; O2SAT 93–97
--- NOTE | 2023-05-22 14:30 | DI.RAD.S_ITS ---
PROCEDURE: PAIN L/S FACET INJ/BLK 1ST CLARENCE INDICATIONS: SPONDYLOSIS COMPARISON: [facility], , PAIN L/S FACET INJ/BLK 1ST CLARENCE, 04/24/2023, 12:10. FINDINGS: Fluoroscopic spot filming was performed to verify placement of spinal needles on both sides at the L3 through L5 levels, as labeled on the films. Appropriate location of the needle tips was confirmed by injection of iodinated contrast. IMPRESSION: Intraprocedural examination demonstrating appropriate positions of the needles. Dictated by: Bill Dallas M.D. on 05/22/2023 at 18:09 Approved by: Bill Dallas M.D. on 05/22/2023 at 18:10
[2023-05-22] MEDS: MIDAZOLAM 2 MG/2 ML VIAL IV (14:53)
[2023-05-22] MEDS: iopamidoL 15 ML VIAL 3 ML INJ (14:55)
[2023-05-22] MEDS: LIDOCAINE 2% INJ SDV 5ML 10 ML INJ (14:56)
--- NOTE | 2023-05-22 16:00 | P.PCN_ITS ---
Date/Time/Diagnoses Date of procedure: 05/22/23 Time of procedure: 14:30 Procedure Notes Physician: Misbah Bender Total Fluoroscopy time (seconds): 27 Total sedation minutes: 12 Procedure in detail & Post-procedure care: Bilateral L3, 4, 5 Lumbar Medial Branch Blocks Indications: Joselyn is presenting for treatment of lumbar spondylosis with low back pain. Preoperative diagnosis: Lumbar spondylosis Postoperative diagnosis: Same Pre-procedure History: Patient demonstrates today moderate to severe non- radicular back pain without neurologic deficit aggravated by hyperextension yes Back pain greater than leg pain? yes Patient today has tenderness over the suspected joint(s) yes History of post-traumatic injury? no Hypertrophic arthropathy yes Back pain associated with suspected motion segment instability, hypermobility or pseudoarthrosis no Focused Examination: Ax3 Mood and affect are normal Vital Signs: VSS ASA: 2 Consent: Following review of allergies and potential side effects/complications, including, but not necessarily limited to, infection, allergic reaction, local tissue breakdown, stroke, temporary or permanent nerve injury, paralysis, and possible , the patient indicated that they understood and agreed to proceed.? An informed consent document was signed by the patient, witnessed by a nurse and placed in the patient's chart.? Additionally, other treatment options including medications and physical therapy were reviewed with the patient. All questions were answered. Site was then marked. Anesthesia: After review of previous anesthetic history and IV conscious sedation, the patient was deemed safe to proceed with today's procedure with IV conscious sedation. IV sedation was accomplished with midazolam 2 mg administered by the RN after order by Dr. Bender. Sedation was titrated to patient comfort during the course of the procedure. Patient remained responsive to all verbal commands. Position: Prone Monitoring: NIBP, Pulse oximetry, 3 lead EKG Needle used: 22 ga 5 inch spinal needle Contrast: Isovue 300M Injectate: 2% lidocaine 1 mL per site Procedure: The patient was brought into the procedure room and positioned into the prone position. Skin was prepped with a Chloraprep solution, allowed to air dry, and then draped in sterile fashion.? The right L4-5 and L5-S1 facet joints were visually identified with fluoroscopy. Lidocaine 1% was used to anesthetize the skin over each target destination with a 25ga needle. A 22 ga, 5 inch spinal needle was advanced to the location of the medial branch at the junction of the superior articular process and the transverse process at L4,5 and the base of the SAP of the sacrum using intermittent fluoroscopy in the AP view. Isovue 300M contrast 0.2ml was injected at each level outlining the medial borders for each level and the base of the SAP of the sacrum in the AP and lateral views. There was no evidence of vascular or intrathecal uptake. The above injectate was slowly injected at each target destination. The left L4-5 and L5-S1 facet joints were visually identified with fluoroscopy. Lidocaine 1% was used to anesthetize the skin over each target destination with a 25ga needle. A 22 ga, 5 inch spinal needle was advanced to the location of the medial branch at the junction of the superior articular process and the transverse process at L4,5 and the base of the SAP of the sacrum using intermittent fluoroscopy in the AP view. Isovue 300M contrast 0.2ml was injected at each level outlining the medial borders for each level and the base of the SAP of the sacrum in the AP and lateral views. There was no evidence of vascular or intrathecal uptake. The above injectate was slowly injected at each target destination. At the end of the procedure the needles were withdrawn and Band- Aids were applied for a dressing. Post Procedure: Patient was taken to the recovery and monitored. The patient was provided a Pain Log to continue to record the patient's response to the target- specific procedure prior to the patient's follow-up visit with the referring p hysician. Patient was stable upon discharge. Detailed post procedure instructions were provided. Patient was asked to call in the event of worsening pain, fever, weakness, numbness or bladder or bowel incontinence. Based on the medial branches blocked today, if the patient meets insurance criteria for radiofrequency, the treatment should result in the denervation of the bilateral L4-5 and L5-S1 facet joint nerves. We would expect to denervate a total of 4 facets during the radiofrequency ablation.
== END 2023-05-22 15:37 | disposition home or self-care (01) ==
LOC: RAD 14:04
PROVIDERS: PCP Physician Assistant; Referring Provider Anesthesiology; Visit Provider Anesthesiology
DX: M47.816 Spondylosis without myelopathy or radiculopathy, lumbar region (principal)
CPT/HCPCS: 64493; 64494; 99152; J2250

== ENCOUNTER 2023-06-12 07:41 | Outpatient (CLI) | payer MEDICARE, OTHER, SELFPAY ==
[2023-05-28 14:11] VITALS: BMI 43.2
[2023-06-12] VITALS (11 sets, daily range): BP systolic 171–217; BP diastolic 77–106; PULSE 69–88; RESP 13–20; TEMP 36.4; O2SAT 95–100
[2023-06-12] MEDS: MIDAZOLAM 2 MG/2 ML VIAL 1 MG IV ×2 (08:20→08:28)
--- NOTE | 2023-06-12 08:30 | DI.RAD.S_ITS ---
PROCEDURE: PAIN L/S MED/LAT N RFA BILAT INDICATIONS: LUMBAR RADICULOPATHY COMPARISON: None. FINDINGS: Fluoroscopic spot filming was performed to verify placement of spinal needles at the L3 through L5 level(s), as labeled on the films. Appropriate location(s) of the needle tip(s) was confirmed by injection of iodinated contrast. IMPRESSION: L3 through L5 needle placement Dictated by: Idalia Reynolds M.D. on 06/12/2023 at 14:10 Approved by: Idalia Reynolds M.D. on 06/12/2023 at 14:10
[2023-06-12] MEDS: DEXAMETHASONE 10 MG/ML VIAL INJ (08:32)
[2023-06-12] MEDS: BUPIVACAINE 0.5% (PF) 10 ML VIAL 5 ML INJ (08:32)
[2023-06-12] MEDS: LIDOCAINE 2% INJ SDV 5ML 10 ML INJ (08:34)
--- NOTE | 2023-06-12 11:43 | P.PCN_ITS ---
Date/Time/Diagnoses Date of procedure: 06/12/23 Time of procedure: 08:30 Procedure Notes Physician: Misbah Bender Total Fluoroscopy time (seconds): 32 Total sedation minutes: 36 Procedure in detail & Post-procedure care: Bilateral L3, 4, 5 Lumbar Medial Branch Radio Frequency Ablation Indications: Joselyn presents for treatment of lumbar spondylosis with low back pain. Preoperative diagnosis: Lumbar spondylosis Postoperative diagnosis: Same Focused Examination: Ax3 Mood and affect are normal Vital Signs: VSS ASA: 3 Consent: Following review of allergies and potential side effects/complications, including, but not necessarily limited to, infection, allergic reaction, local tissue breakdown, stroke, temporary or permanent nerve injury, paralysis, and possible , the patient indicated that they understood and agreed to proceed.? An informed consent document was signed by the patient, witnessed by a nurse and placed in the patient's chart.? Additionally, other treatment options including medications and physical therapy were reviewed with the patient. All questions were answered. Site was then marked. Position: Prone Monitoring: NIBP, Pulse oximetry, 3 lead EKG Needle used: 18 guage, 150 mm, 10 mm active tip Anesthesia: Local with IV sedation. After review of previous anesthetic history and IV conscious sedation, the patient was deemed safe to proceed with today's procedure with IV conscious sedation. IV sedation was accomplished with midazolam 2 mg administered by the RN after order by Dr. Bender. Sedation was t itrated to patient comfort during the course of the procedure. Patient remained responsive to all verbal commands. Procedure: The patient was brought into the procedure room and positioned into the prone position. Skin was prepped with a Chloraprep solution, allowed to air dry, and then draped in sterile fashion.? The right L4-5 and L5-S1 facet joints were visually identified with fluoroscopy. Lidocaine 1% was used to anesthetize the skin over each target destination with a 25ga needle. An 18 ga, 100 mm RFA needle with a 10 mm active tip was advanced to the location of the medial branch at the junction of the superior articular process and the transverse process at L4,5 and the base of the SAP of the sacrum using intermittent fluoroscopy in the oblique view with caudal tilt. AP and lateral radiographs were taken to confirm proper needle placement. No paresthesias were noted. The stylet was removed and the radiofrequency probe was inserted through the cannula. Each level was individually tested.? Motor stimulation up to 2V elicited multifidus twitching in the lumbar spine. There was no motor stimulation in the lower extremities. After negative aspiration, 1ml of 2% lidocaine was injected at each of the levels and radiofrequency denervation carried out using 80 degrees Celsius for 90 seconds. The needles were then rotated 90 degrees and a second ablation was performed at 80 degrees Celsius for 90 seconds. Next, the left L4-5 and L5-S1 facet joints were visually identified with fluoroscopy. Lidocaine 1% was used to anesthetize the skin over each target destination with a 25ga needle. An 18 ga, 100 mm RFA needle with a 10 mm active tip was advanced to the location of the medial branch at the junction of the superior articular process and the transverse process at L4,5 and the base of the SAP of the sacrum using intermittent fluoroscopy in the oblique view with caudal tilt. AP and lateral radiographs were taken to confirm proper needle placement. No paresthesias were noted. The stylet was removed and the radiofrequency probe was inserted through the cannula. Each level was individually tested. Motor stimulation up to 2V elicited multifidus twitching in the lumbar spine. There was no motor stimulation in the lower extremities. After negative aspiration, 1ml of 2% lidocaine was injected at each of the levels and radiofrequency denervation carried out using 80 degrees Celsius for 90 seconds. The needles were then rotated 90 degrees and a second ablation was performed at 80 degrees Celsius for 90 seconds. After ablation, a mixture of 10 mg dexamethasone with 0.5% bupivacaine 5 mL was injected in equal amounts among the sites (1 mL per site). At the end of the procedure the needles were withdrawn and Band-Aids were applied for a dressing. This procedure is expected to denervate the bilateral L4-5 and L5-S1 facet joints. Post Procedure: Patient was taken to the recovery and monitored. The patient was provided a Pain Log to continue to record the patient's response to the target- specific procedure prior to the patient's follow-up visit with the referring physician. Patient was stable upon discharge. Detailed post procedure instructions were provided. Patient was asked to call in the event of worsening pain, fever, weakness, numbness or bladder or bowel incontinence. Complications: None
== END 2023-06-12 09:15 | disposition home or self-care (01) ==
PROVIDERS: PCP Physician Assistant; Referring Provider Anesthesiology; Visit Provider Anesthesiology
DX: M47.816 Spondylosis without myelopathy or radiculopathy, lumbar region (principal)
CPT/HCPCS: 64635; 64636; 99152; 99153; J1100; J2250

== ENCOUNTER → 2023-09-17 15:03 | Outpatient (CLI) | payer MEDICARE, OTHER, SELFPAY ==
[2023-05-28 14:11] VITALS: BMI 43.2
--- NOTE | 2023-09-17 15:05 | DI.MG.S_ITS ---
BILATERAL DIGITAL SCREENING MAMMOGRAM 3D/2D WITH CAD: 09/17/2023 CLINICAL: Routine screening. Breast cancer. Comparison is made to exams dated: 02/05/2022 mammogram, 08/08/2020 mammogram, and 04/04/2018 mammogram - [facility]. There are scattered areas of fibroglandular density in both breasts (category b / 25%-50% glandular tissue). Current study was also evaluated with a Computer Aided Detection (CAD) system. There are benign post operative findings in the left breast. No significant masses, calcifications, or other findings are seen in either breast. There has been no significant interval change. IMPRESSION: BENIGN There is no mammographic evidence of malignancy. A 1 year screening mammogram is recommended. This exam was interpreted at Station ID: [id number]. NOTE: For mammograms, a report in lay terms will be sent to the patient. Approximately 15% of breast malignancies will not be visualized mammographically. In the management of a palpable breast mass, a negative mammogram must not discourage biopsy of a clinically suspicious lesion. Electronically Signed By: Arya irving/iain:09/18/2023 12:47:09 letter sent: Normal Exam ACR BI-RADS Category 2: Benign Finding(s) [id number]
== END ==
PROVIDERS: PCP Physician Assistant; Referring Provider Physician Assistant; Visit Provider Physician Assistant
DX: Z12.31 Encounter for screening mammogram for malignant neoplasm of breast (principal); Z85.3 Personal history of malignant neoplasm of breast; R92.323 Mammographic fibroglandular density, bilateral breasts
CPT/HCPCS: 77063; 77067